=== PATIENT | female | born 1940 | race Caucasian/White ===

== ENCOUNTER 2017-11-14 14:28 | Emergency (ER) | payer OTHER ==
[2017-11-14] MEDS ORDERED: ASPIRIN 81 MG CHEWABLE TABLET ONE (15:15)
[2017-11-14] MEDS ORDERED: LORazepam 2 MG/ML VIAL ONE (15:16)
[2017-11-14] MEDS ORDERED: ONDANSETRON 4 MG/2 ML VIAL ONE (15:16)
[2017-11-14] MEDS ORDERED: FAMOTIDINE 20 MG/2 ML VIAL IV ONE (15:16)
--- NOTE | 2017-11-14 15:47 | RAD REPORT ---
EXAM DESCRIPTION: RAD - Chest Single View - 11/14/2017 3:18 pm CLINICAL HISTORY: Chest pain, sore throat COMPARISON: March 2017 TECHNIQUE: AP portable chest image was obtained 1505 hours . FINDINGS: Scattered fibrotic lung changes are present. No peripheral mass, consolidation or failure finding. Heart size is upper normal. No vascular engorgement. Heart size has probably increased sligh tly. No measurable pleural effusion and no pneumothorax. Shoulder joint degenerative change and thora cic spine degenerative change present. No acute bone finding suspected. No acute aortic findings susp ected. IMPRESSION: Scattered fibrotic lung change similar to comparison. No acute lung parenchymal process. Heart size is upper normal with no other findings of failure or volume overload.
[2017-11-14 15:57] LABS: Absolute Lymphocytes (CBC) 1.5 K/uL (0.7-4.9); Absolute Monocytes 0.5 K/uL (0.1-1.3); Absolute Neutrophil 2.6 K/uL (1.8-8.0); Basophils % 0.9 % (0-1.3); Eosinophils % 2.1 % (0-4.4); Hematocrit 40.2 % (36.0-45.0); Lymphocytes % 31.3 % (15.3-44.8); MCH 29.8 pg (27.0-35.0); MCV 88.6 fL (80-100); MPV 7.9 fL (7.6-11.3); Monocytes % 11.1 % (3.3-12.3); RBC Red Blood Cell Count 4.53 M/uL (3.86-4.86)
[2017-11-14 16:00] LABS: Protime INR 1.03
[2017-11-14 16:19] LABS: Bilirubin Direct 0.2 mg/dL (0-0.2); Bilirubin Total 0.7 mg/dL (0.2-1.0); Magnesium 2.2 mg/dL (1.8-2.4); Potassium 3.9 mmol/L (3.5-5.1); Protein, Total 7.7 g/dL (6.4-8.2)
[2017-11-14] MEDS ORDERED: NA CHLORIDE 0.9% 1,000 ML ONE (16:39)
--- NOTE | 2017-11-14 18:31 | ER ---
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 aj Transition of care: patient was not received from another setting of care. Onset of symptoms was November 14, 2017. Risk Assessment: Do you want to hurt yourself or someone else? Patient reports no desire to harm self or others. Initial Sepsis Screen: Does the patient meet any 2 criteria? No. Patient's initial sepsis screen is negative. Does the patient have a suspected source of infection? No. Patient's initial sepsis screen is negative. Care prior to arrival: None. 14:40 Method Of Arrival: Wheelchair aj 14:40 Acuity: HOWIE 3 aj Triage Assessment: 14:43 General: Appears in no apparent distress. Behavior is calm, cooperative, appropriate aj for age. Pain: Complains of pain in chest. EENT: Throat is clear Reports pain when swallowing. Neuro: Level of Consciousness is awake, alert, obeys commands, Oriented to person, place, time, situation, Appropriate for age. Cardiovascular: Capillary refill < 3 seconds in bilateral fingers Patient's skin is warm and dry. Respiratory: Airway is patent Respiratory effort is even, unlabored, Respiratory pattern is regular, symmetrical. Derm: Skin is intact, is healthy with good turgor, Skin is pink, warm \T\ dry. normal. Historical: - Allergies: 14:43 IV contrast; aj 14:43 PENICILLINS; aj - Home Meds: 14:43 amlodipine 5 mg oral tab [Active]; losartan 100 mg Oral tab 1 tab once daily [Active]; aj duloxetine 60 mg oral cpDR 1 cap once daily [Active]; atorvastatin 10 mg oral tab 1 tab once daily [Active]; divalproex 500 mg oral TbEC 1 tab every other day [Active]; quetiapine 200 mg oral tab 1 tab 2 times per day [Active]; mirtazapine 15 mg Oral tab 1 tab once daily [Active]; clonazepam 2 mg Oral tab [Active]; - PMHx: 14:43 Anxiety; Chronic pain; Depression; Hypertension; aj - PSHx: 14:43 Hernia repair; Hysterectomy; aj - Immunization history:: Adult Immunizations up to date. - Social history:: Smoking status: Patient/guardian denies using tobacco. - Ebola Screening: : Patient negative for fever greater than or equal to 101.5 degrees Fahrenheit, and additional compatible Ebola Virus Disease symptoms Patient denies exposure to infectious person Patient denies travel to an Ebola-affected area in the 21 days before illness onset No symptoms or risks identified at this time. Screenin:54 Abuse screen: Denies threats or abuse. Nutritional screening: No deficits noted. ae1 Tuberculosis screening: No symptoms or risk factors identified. Fall Risk None identified. Assessment: 14:45 General: Appears in no apparent distress. comfortable, obese, Behavior is cooperative, ae1 anxious. Pain: Complains of pain in chest Pain does not radiate. Neuro: Level of Consciousness is awake, alert, obeys commands, Oriented to person, place, Appropriate for age. Cardiovascular: Heart tones S1 S2 present Patient's skin is warm and dry. Respiratory: Airway is patent Respiratory effort is even, unlabored, Respiratory pattern is regular, symmetrical, Breath sounds are clear bilaterally. GI: Abdomen is round obese, Bowel sounds present X 4 quads. : No signs and/or symptoms were reported regarding the genitourinary system. EENT: No signs and/or symptoms were reported regarding the EENT system. Derm: Skin is pale. Musculoskeletal: No signs and/or symptoms reported regarding the musculoskeletal system. 15:20 Reassessment: Patient up to restroom to urinate .Obtained urine sample at this time. ae1 15:55 Pain: Pain does not radiate. Pain began suddenly. ae1 17:29 Reassessment: Patient appears in no apparent distress at this time. Patient is ae1 requesting more Ativan, states she is beginning to feel more anxious. Will continue to monitor and inform provider when available. Vital Signs: 14:43 BP 157 / 120; Pulse 77; Resp 22; Temp 99.7; Pulse Ox 94% on R/A; Weight 90.72 kg; aj Height 5 ft. 7 in. (170.18 cm); 15:57 BP 150 / 77; Pulse 75; Resp 19; Pulse Ox 95% on R/A; ae1 16:34 BP 146 / 73; Pulse 68; Resp 17; Pulse Ox 92% on R/A; ae1 14:43 Body Mass Index 31.32 (90.72 kg, 170.18 cm) aj ED Course: 14:31 Patient arrived in ED. mr 14:31 Padilla Ballard MD is Private Physician. mr 14:37 Nura Cano PA is PHCP. jr8 14:37 Chandra Jacome MD is Attending Physician. jr8 14:41 Triage completed. aj 14:43 Arm band placed on right wrist. Patient placed in an exam room. aj 15:07 Scott Kaiser, SUNNI is Primary Nurse. ae1 15:16 XRAY Chest (1 view) In Process Unspecified. EDMS 15:53 Inserted saline lock: 20 gauge in right forearm, using aseptic technique. Missed ae1 attempt(s): 22 gauge in right forearm. Patient maintains SpO2 saturation greater than 95% on room air. 15:54 Patient has correct armband on for positive identification. Placed in gown. Bed in low ae1 position. Call light in reach. Side rails up X2. Adult w/ patient. residential monitor on. Pulse ox on. NIBP on. Warm blanket given. 17:54 Repeat lab(s) drawn. by me, sent to lab. jb1 18:30 Padilla Ballard MD is Referral Physician. jr8 18:59 No provider procedures requiring assistance completed. IV discontinued, intact, ae1 bleeding controlled, No redness/swelling at site. Pressure dressing applied. Administered Medications: 15:00 Drug: Aspirin Chewable Tablet 324 mg Route: PO; ae1 16:40 Follow up: Response: No adverse reaction ae1 15:30 Drug: Ativan 1 mg Route: IVP; Site: right forearm; ae1 16:40 Follow up: Response: No adverse reaction; Anxiety decreased ae1 15:40 Drug: Pepcid 20 mg Route: IVP; Site: right forearm; ae1 16:40 Follow up: Response: No adverse reaction ae1 15:56 Not Given (Patient Refused; Patient states she is not nauseous at this time): Zofran 4 ae1 mg IVP once; over 2 minutes 16:39 Drug: NS 0.9% 1000 ml Route: IV; Rate: 1000 ml; Site: right forearm; ae1 19:01 Follow up: IV Status: Completed infusion ae1 Outcome: 18:31 Discharge ordered by MD. schwartz 18:59 Discharged to home via wheelchair. ae1 18:59 Condition: stable 18:59 Discharge instructions given to patient, significant other, Instructed on discharge instructions, follow up and referral plans. medication usage, Demonstrated understanding of instructions, Prescriptions given X 1. 19:05 Patient left the ED. ae1 Signatures: Dispatcher [employer] EDMS Les Nieves jb1 Cecilia Rich, SUNNI RN Myra Lilly mr Nura Cano PA PA jr8 Scott Kaiser RN RN ae1 Corrections: (The following items were deleted from the chart) 15:52 15:43 Aspirin Chewable Tablet 324 mg PO ae1 ae1
--- NOTE | 2017-11-14 18:31 | EDPHYS ---
Physician Documentation [facility] Name: Zuleima Cunningham Age: 77 yrs Sex: Female : 1940 Arrival Date: 11/14/2017 Time: 14:31 Bed 5 Private MD: Padilla Ballard V ED Physician Chandra Jacome HPI: 11/14 15:12 This 77 yrs old Female presents to ER via Wheelchair with complaints of Chest jr8 Tightness/epigastric pain. 15:12 Patient stated that she feels nauseated and has upper abdominal discomfort going to jr8 chest. Feels as if she cannot swallow well and does not want to eat. Says the pain goes to her back. S/S started yesterday. Stated that she has been out of her 2 mg Klonopin for 3 days now as well. Thinks it may be due to that . Severity of symptoms: At their worst the symptoms were moderate in the emergency department the symptoms are unchanged. The patient has not experienced similar symptoms in the past. The patient has not recently seen a physician. Historical: - Allergies: 14:43 IV contrast; aj 14:43 PENICILLINS; aj - Home Meds: 14:43 amlodipine 5 mg oral tab [Active]; losartan 100 mg Oral tab 1 tab once daily [Active]; aj duloxetine 60 mg oral cpDR 1 cap once daily [Active]; atorvastatin 10 mg oral tab 1 tab once daily [Active]; divalproex 500 mg oral TbEC 1 tab every other day [Active]; quetiapine 200 mg oral tab 1 tab 2 times per day [Active]; mirtazapine 15 mg Oral tab 1 tab once daily [Active]; clonazepam 2 mg Oral tab [Active]; - PMHx: 14:43 Anxiety; Chronic pain; Depression; Hypertension; aj - PSHx: 14:43 Hernia repair; Hysterectomy; aj - Immunization history:: Adult Immunizations up to date. - Social history:: Smoking status: Patient/guardian denies using tobacco. - Ebola Screening: : Patient negative for fever greater than or equal to 101.5 degrees Fahrenheit, and additional compatible Ebola Virus Disease symptoms Patient denies exposure to infectious person Patient denies travel to an Ebola-affected area in the 21 days before illness onset No symptoms or risks identified at this time. ROS: 15:12 Eyes: Negative for injury, pain, redness, and discharge, ENT: Negative for injury, jr8 pain, and discharge, Neck: Negative for injury, pain, and swelling, Respiratory: Negative for shortness of breath, cough, wheezing, and pleuritic chest pain, Back: Negative for injury and pain, MS/Extremity: Negative for injury and deformity, Skin: Negative for injury, rash, and discoloration, Neuro: Negative for headache, weakness, numbness, tingling, and seizure. 15:12 Cardiovascular: Positive for chest pain, Negative for edema, orthopnea, palpitations, paroxysmal nocturnal dyspnea. 15:12 Abdomen/GI: Positive for abdominal pain, nausea, Negative for diarrhea, abdominal cramps, abdominal distension, anorexia, dysphagia, hematemesis, black/tarry stool, rectal pain, rectal bleeding, bowel incontinence, flatulence. Exam: 15:12 Eyes: Pupils equal round and reactive to light, extra-ocular motions intact. Lids and jr8 lashes normal. Conjunctiva and sclera are non-icteric and not injected. Cornea within normal limits. Periorbital areas with no swelling, redness, or edema. ENT: Nares patent. No nasal discharge, no septal abnormalities noted. Tympanic membranes are normal and external auditory canals are clear. Oropharynx with no redness, swelling, or masses, exudates, or evidence of obstruction, uvula midline. Mucous membranes moist. Neck: Trachea midline, no thyromegaly or masses palpated, and no cervical lymphadenopathy. Supple, full range of motion without nuchal rigidity, or vertebral point tenderness. No Meningismus. Cardiovascular: Regular rate and rhythm with a normal S1 and S2. No gallops, murmurs, or rubs. Normal PMI, no JVD. No pulse deficits. Respiratory: Lungs have equal breath sounds bilaterally, clear to auscultation and percussion. No rales, rhonchi or wheezes noted. No increased work of breathing, no retractions or nasal flaring. Back: No spinal tenderness. No costovertebral tenderness. Full range of motion. Skin: Warm, dry with normal turgor. Normal color with no rashes, no lesions, and no evidence of cellulitis. MS/ Extremity: Pulses equal, no cyanosis. Neurovascular intact. Full, normal range of motion. Neuro: Awake and alert, GCS 15, oriented to person, place, time, and situation. Cranial nerves II-XII grossly intact. Motor strength 5/5 in all extremities. Sensory grossly intact. Cerebellar exam normal. Normal gait. 15:12 Abdomen/GI: Inspection: abdomen appears normal, Bowel sounds: active, all quadrants, Palpation: soft, in all quadrants, mild abdominal tenderness, in the epigastric area, mass, is not appreciated, rebound tenderness, is not appreciated, voluntary guarding, is not appreciated, involuntary guarding, is not appreciated, no appreciated organomegaly, Indicators: McBurney's point is not tender, Aguirre's sign is negative, Rovsing's sign is negative, Liver: no appreciated palpable abnormalities, tenderness, is not appreciated. Vital Signs: 14:43 BP 157 / 120; Pulse 77; Resp 22; Temp 99.7; Pulse Ox 94% on R/A; Weight 90.72 kg; aj Height 5 ft. 7 in. (170.18 cm); 15:57 BP 150 / 77; Pulse 75; Resp 19; Pulse Ox 95% on R/A; ae1 16:34 BP 146 / 73; Pulse 68; Resp 17; Pulse Ox 92% on R/A; ae1 14:43 Body Mass Index 31.32 (90.72 kg, 170.18 cm) aj MDM: 14:37 Patient medically screened. jr8 18:28 Data reviewed: vital signs, nurses notes, lab test result(s), EKG, radiologic studies, jr8 plain films, and as a result, I will discharge patient. Data interpreted: Pulse oximetry: on room air is 94 %. Interpretation: normal. Counseling: I had a detailed discussion with the patient and/or guardian regarding: the historical points, exam findings, and any diagnostic results supporting the discharge/admit diagnosis, lab results, radiology results, the need for outpatient follow up, a family practitioner, to return to the emergency department if symptoms worsen or persist or if there are any questions or concerns that arise at home. Response to treatment: the patient's symptoms have markedly improved after treatment. ED course: Patient much better after treatment. More then likely unintentional withdrawal from benzo. Will prescribe a few days worth to get her through the weekend . 11/14 14:37 Order name: Basic Metabolic Panel; Complete Time: 16:26 jr8 11/14 14:37 Order name: CBC with Diff; Complete Time: 16:07 11/14 14:37 Order name: LFT's; Complete Time: 16:26 11/14 14:37 Order name: Magnesium; Complete Time: 16:11/14 14:37 Order name: NT PRO-BNP; Complete Time: 16:26 11/14 14:37 Order name: PT-INR; Complete Time: 16:26 11/14 14:37 Order name: Troponin (emerg Dept Use Only); Complete Time: 16:11/14 14:37 Order name: XRAY Chest (1 view); Complete Time: 15:54 11/14 15:00 Order name: Lipase; Complete Time: 16:11/14 17:41 Order name: Troponin (emerg Dept Use Only); Complete Time: 18:28 11/14 14:37 Order name: EKG; Complete Time: 14:38 11/14 14:37 Order name: Cardiac monitoring; Complete Time: 15:50 11/14 14:37 Order name: EKG - Nurse/Tech; Complete Time: 15:51 11/14 14:37 Order name: IV Saline Lock; Complete Time: 15:51 11/14 14:37 Order name: Labs collected and sent; Complete Time: 15:51 11/14 14:37 Order name: O2 Per Protocol; Complete Time: 15:51 11/14 14:37 Order name: O2 Sat Monitoring; Complete Time: 15:51 11/14 14:37 Order name: Urine Dipstick-Ancillary (obtain specimen); Complete Time: 15:20 Administered Medications: 15:00 Drug: Aspirin Chewable Tablet 324 mg Route: PO; ae1 16:40 Follow up: Response: No adverse reaction ae1 15:30 Drug: Ativan 1 mg Route: IVP; Site: right forearm; ae1 16:40 Follow up: Response: No adverse reaction; Anxiety decreased ae1 15:40 Drug: Pepcid 20 mg Route: IVP; Site: right forearm; ae1 16:40 Follow up: Response: No adverse reaction ae1 15:56 Not Given (Patient Refused; Patient states she is not nauseous at this time): Zofran 4 ae1 mg IVP once; over 2 minutes 16:39 Drug: NS 0.9% 1000 ml Route: IV; Rate: 1000 ml; Site: right forearm; ae1 19:01 Follow up: IV Status: Completed infusion ae1 Disposition: 11/14/17 18:31 Discharged to Home. Impression: Underdosing of benzodiazepines - Withdrawl from Benzodiazepine . - Condition is Stable. - Prescriptions for Klonopin 1 mg Oral Tablet - take 1 tablet by ORAL route every 12 hours As needed; 12 tablet. - Medication Reconciliation Form, Thank You Letter, Antibiotic Education, Prescription Opioid Use form. - Follow up: Padilla Ballard MD; When: 48 Hours; Reason: Recheck today's complaints, Continuance of care, Re-evaluation by your physician. - Problem is new. - Symptoms have improved. Addendum: 11/18/2017 07:13 Co-signature as Attending Physician, Chandra Jacome MD. r n Signatures: Dispatcher [employer] EDMS Cecilia Rich RN RN aj Nieto, Roman, MD MD rn Roszak, Josh, PA PA jr8 Scott Kaiser RN RN ae1 Corrections: (The following items were deleted from the chart) 11/14 19:05 18:31 11/14/2017 18:31 Discharged to Home. Impression: Underdosing of benzodiazepines - ae1 Withdrawl from Benzodiazepine . Condition is Stable. Forms are Medication Reconciliation Form, Thank You Letter, Antibiotic Education, Prescription Opioid Use. Follow up: Padilla Ballard; When: 48 Hours; Reason: Recheck today's complaints, Continuance of care, Re-evaluation by your physician. Problem is new. Symptoms have improved. jr8
[2017-11-14 19:09] VITALS: TEMP 99.7
[2017-11-14 19:11] VITALS: BP 146/73; O2SAT 92
--- NOTE | 2017-11-15 07:12 | EKG ---
Test Date: 2017-11-14 Test Time: 14:40:21 Music Teacher: JASPREET MEASUREMENT RESULTS: Intervals: Rate: 77 [place]: 186 QRSD: 80 QT: 414 QTc: 468 [place]: P: 19 [place]: 186 QRS: -10 T: 89 INTERPRETIVE STATEMENTS: Normal sinus rhythm Normal ECG Compared to ECG 03/13/2017 17:19:39 No significant changes Electronically Signed On 11-15-17 07:11:43 CDT by Inderjit Canas
== END 2017-11-14 19:05 | disposition home or self-care (01) ==
LOC: ER 14:28
DX: T42.4X6A Underdosing of benzodiazepines, initial encounter (principal); I10 Essential (primary) hypertension; Z91.128 Patient's intentional underdosing of medication regimen for other reason; Y92.9 Unspecified place or not applicable; Z88.0 Allergy status to penicillin; Z91.041 Radiographic dye allergy status
CPT/HCPCS: 36415; 71045; 80048; 80076; 83690; 83735; 83880; 84484 ×2; 85025; 85610; 93005; 96361; 96374; 96375; 99285; J7030; J2405

== ENCOUNTER 2018-03-06 15:27 | Emergency (ER) | payer OTHER ==
[2018-03-06 16:12] LABS: Absolute Lymphocytes (CBC) 1.4 K/uL (0.7-4.9); Absolute Monocytes 0.4 K/uL (0.1-1.3); Absolute Neutrophil 1.9 K/uL (1.8-8.0); Basophils % 1.1 % (0-1.3); Eosinophils % 3.7 % (0-4.4); Hematocrit 38.4 % (36.0-45.0); Lymphocytes % 36.1 % (15.3-44.8); MCH 29.3 pg (27.0-35.0); MCV 86.6 fL (80-100); MPV 8.1 fL (7.6-11.3); Monocytes % 10.5 % (3.3-12.3); RBC Red Blood Cell Count 4.44 M/uL (3.86-4.86)
[2018-03-06] MEDS ORDERED: ONDANSETRON 4 MG/2 ML VIAL ONE (16:19)
[2018-03-06 16:33] LABS: ALT/SGPT 31 U/L (12-78); AST/SGOT 24 U/L (15-37); Albumin 3.6 g/dL (3.4-5.0); Alkaline Phosphatase 68 U/L (45-117); BUN Blood Urea Nitrogen 15 mg/dL (7-18); Bicarbonate 28 mmol/L (21-32); Bilirubin Direct 0.2 mg/dL (0-0.2); Bilirubin Total 0.6 mg/dL (0.2-1.0); Glucose Level 107 mg/dL (74-106); Lipase 120 U/L (73-393); Magnesium 2.1 mg/dL (1.8-2.4); NT PRO-BNP 145 pg/mL (<450); Potassium 3.7 mmol/L (3.5-5.1); Protein, Total 6.7 g/dL (6.4-8.2); Sodium Level 143 mmol/L (136-145); Troponin (Emerg Dept Use Only) < 0.02 ng/mL (0.0-0.045)
[2018-03-06 17:50] LABS: Protime INR 0.97
--- NOTE | 2018-03-06 18:44 | RAD REPORT ---
EXAM DESCRIPTION: CT - Abdomen Pelvis Wo Contrast - 03/06/2018 6:23 pm CLINICAL HISTORY: Abdominal pain generalized abdominal pain COMPARISON: March 2017 TECHNIQUE: Computed axial tomography of the abdomen and pelvis was obtained. IV was not requested. O ral contrast was given. Coronal reconstructions performed. All CT scans are performed using dose optimization technique as appropriate and may include automated exposure control or mA/KV adjustment according to patient size. FINDINGS: Some images are degraded by patient motion artifact. The evaluation of solid organs and ve ssels is limited secondary to the lack of contrast administration. The liver, spleen, pancreas, adrenals and kidneys appear grossly normal. The appendix is normal. There is no evidence of diverticulitis. Small periumbilical hernia is noted. A hysterectomy has been performed Air is present within the vagina Wall of the sigmoid colon appears mildly thickened IMPRESSION: Air is present within the vagina. This can be seen with infection/ fistula or instrument ation The wall of the sigmoid colon appears mildly thickened. This probably is secondary to incomplete dist ention. Mild colitis can also result in this appearance and should be correlated clinically
[2018-03-06] MEDS ORDERED: NA CHLORIDE 0.9% 500 ML ONE (20:00)
[2018-03-06] MEDS ORDERED: ASPIRIN 81 MG CHEWABLE TABLET ONE (20:00)
[2018-03-06 20:14] LABS: Urine Bacteria <20 /HPF (<20); Urine Culture Reflex Order REFLEXED; Urine RBC <5 /HPF (NONE SEEN)
--- NOTE | 2018-03-06 20:35 | RAD REPORT ---
EXAM DESCRIPTION: Chris Single View03/06/2018 4:12 pm CLINICAL HISTORY: Chest pain COMPARISON: November 2017 FINDINGS: The lungs appear clear of acute infiltrate. The heart is normal size IMPRESSION: No acute abnormalities displayed
[2018-03-06 20:46] LABS: Urine Blood NEGATIVE (NEG); Urine Glucose NEGATIVE (NEG); Urine Protein NEGATIVE (NEG)
--- NOTE | 2018-03-06 21:22 | EDPHYS ---
Physician Documentation [facility] Name: Zuleima Cunningham Age: 77 yrs Sex: Female : 1940 Arrival Date: 03/06/2018 Time: 15:30 Bed 19 Private MD: Padilla Ballard V ED Physician Donny Shields HPI: 03/06 15:45 This 77 yrs old Female presents to ER via EMS with complaints of Abd Pain > cp 51 y/o. 15:45 The patient presents with abdominal pain that is diffuse. cp 15:45 Onset: The symptoms/episode began/occurred this morning. The symptoms do not radiate. cp Associated signs and symptoms: Pertinent positives: chest pain, constipation, nausea, difficulty swallowing, Pertinent negatives: blood in stools, diarrhea, dysuria, fever, headache, shortness of breath, vomiting. Severity of pain: in the emergency department the pain is unchanged despite home interventions. Patient reports last BM was 4 days ago and that she is having difficulty swallowing and feels like food is getting stuck. Historical: - Allergies: 15:34 IV contrast; jl7 15:34 PENICILLINS; jl7 - Home Meds: 15:34 amlodipine 5 mg tab [Active]; atorvastatin 10 mg Oral tab 1 tab once daily [Active]; jl7 clonazepam 2 mg Oral tab [Active]; divalproex 500 mg Oral TbEC 1 tab Every other day [Active]; duloxetine 60 mg Oral cpDR 1 cap once daily [Active]; losartan 100 mg Oral tab 1 tab once daily [Active]; mirtazapine 15 mg Oral tab 1 tab once daily [Active]; quetiapine 200 mg Oral tab 1 tab 2 times per day [Active]; - PMHx: 15:34 Anxiety; Chronic pain; Depression; Hypertension; jl7 - PSHx: 15:34 Hernia repair; Hysterectomy; jl7 - Immunization history:: Adult Immunizations unknown. - Social history:: Smoking status: Patient/guardian denies using tobacco. - Ebola Screening: : No symptoms or risks identified at this time. ROS: 15:52 Constitutional: Negative for body aches, chills, fever, poor PO intake. cp 15:52 Eyes: Negative for injury, pain, redness, and discharge. cp 15:52 ENT: Negative for drainage from ear(s), ear pain, sore throat, difficulty swallowing, difficulty handling secretions. Exam: 15:55 ECG was reviewed by the Attending Physician. cp 16:00 Constitutional: The patient appears in no acute distress, alert, awake, cp non-diaphoretic, non-toxic, well developed, well nourished, uncomfortable. 16:00 Head/Face: Normocephalic, atraumatic. cp 16:00 Eyes: Periorbital structures: appear normal, Pupils: equal, round, and reactive to light and accomodation, Conjunctiva: normal, no exudate, no injection, Sclera: no appreciated abnormality, Lids and lashes: appear normal, bilaterally. 16:00 ENT: External ear(s): are unremarkable, Ear canal(s): are normal, clear, TM's: are normal, no evidence of bulging, no erythema, Nose: is normal, Mouth: Lips: moist, Oral mucosa: pink and intact, moist, Gums: pink, Tongue: is normal, abscess, is not appreciated, Posterior pharynx: is normal, airway is patent, no erythema, no exudate, Dental exam: dental caries, that is moderate, diffusely, missing teeth, diffusely, pain, that is moderate, diffusely. 16:00 Neck: ROM/movement: is normal, is supple, without pain, no range of motions limitations, no meningismus, no nuchal rigidity. 16:00 Chest/axilla: Inspection: normal, Palpation: is normal, no crepitus, no tenderness. 16:00 Cardiovascular: Rate: normal, Rhythm: regular. 16:00 Respiratory: the patient does not display signs of respiratory distress, Respirations: normal, no use of accessory muscles, no retractions, no splinting, no tachypnea, labored breathing, is not present, Breath sounds: are clear throughout, no decreased breath sounds, no stridor, no wheezing. 16:00 Abdomen/GI: Inspection: abdomen appears normal, Bowel sounds: active, all quadrants, Palpation: soft, in all quadrants, moderate abdominal tenderness, in all quadrants, rebound tenderness, is not appreciated, voluntary guarding, is not appreciated, involuntary guarding, is not appreciated. 16:00 Back: pain, is absent, ROM is normal. 16:00 Musculoskeletal/extremity: Exam is negative for calf tenderness, edema, injury. 16:00 Skin: cellulitis, is not appreciated, no rash present. 16:00 Neuro: Orientation: to person, place \T\ time. Mentation: is normal, Cerebellar function: is grossly normal, Motor: moves all fours, strength is normal, Sensation: is normal. Vital Signs: 15:34 BP 152 / 84; Pulse 72; Resp 18 S; Temp 98.5(O); Pulse Ox 98% on R/A; Weight 92.08 kg jl7 (R); Height 5 ft. 6 in. (167.64 cm) (R); Pain 5/10; 16:00 BP 177 / 77; Pulse 72; Resp 16 S; Pulse Ox 99% on R/A; jl7 17:05 BP 158 / 84; Pulse 65; Resp 16 S; Pulse Ox 99% on R/A; jl7 17:30 BP 161 / 82; Pulse 70; Resp 16 S; Pulse Ox 99% on R/A; jl7 18:37 BP 155 / 81; Pulse 73; Resp 16 S; Pulse Ox 99% on R/A; jl7 19:30 BP 143 / 72; Pulse 76; Resp 18; Pulse Ox 97% ; ea 20:31 BP 163 / 78; Pulse 75; Resp 19; Pulse Ox 97% ; ea 21:09 BP 165 / 70; Pulse 80; Resp 18; Pulse Ox 99% ; ea 21:17 BP 173 / 85; Pulse 75; Resp 14; Pulse Ox 100% on R/A; mt 15:34 Body Mass Index 32.76 (92.08 kg, 167.64 cm) 7 MDM: 15:34 Patient medically screened. cp 16:00 Differential diagnosis: bowel obstruction, cholecystitis, Cholelithiasis, cp diverticulitis, gastritis, non-specific abd pain, pancreatitis, Pyelonephritis, Ureterolithiasis, urinary tract infection, colitis. 21:20 Data reviewed: vital signs, nurses notes, lab test result(s), EKG, radiologic studies, cp CT scan, plain films. 21:20 Test interpretation: by ED physician or midlevel provider: ECG, plain radiologic cp studies. Counseling: I had a detailed discussion with the patient and/or guardian regarding: the historical points, exam findings, and any diagnostic results supporting the discharge/admit diagnosis, lab results, radiology results, the need for outpatient follow up, a placement manager, to return to the emergency department if symptoms worsen or persist or if there are any questions or concerns that arise at home. Response to treatment: the patient's symptoms have markedly improved after treatment, VSS. Patient reports abdominal pain improved after BM while in ED, and as a result, I will discharge patient. Special discussion: Based on the patient's Hx, exam, and Dx evaluation, there is no indication for emergent surgery or inpatient Tx. It is understood by the patient/guardian that if the Sx's persist or worsen they need to return immediately for re-evaluation. 03/06 15:38 Order name: Basic Metabolic Panel; Complete Time: 17:31 cp 03/06 17:31 Interpretation: Normal except: CL 108; GLUC 107; GFR 70. cp 03/06 15:38 Order name: CBC with Diff; Complete Time: 17:31 cp 03/06 17:31 Interpretation: Normal except: WBC 3.8. cp 03/06 15:38 Order name: LFT's; Complete Time: 17:31 cp 03/06 15:38 Order name: Magnesium; Complete Time: 17:31 cp 03/06 15:38 Order name: NT PRO-BNP; Complete Time: 17:31 cp 03/06 15:38 Order name: PT-INR; Complete Time: 19:31 cp 03/06 15:38 Order name: Troponin (emerg Dept Use Only); Complete Time: 17:31 cp 03/06 17:32 Interpretation: Within normal limits: TROPED < 0.02. cp 03/06 15:38 Order name: XRAY Chest (1 view); Complete Time: 20:48 cp 03/06 15:38 Order name: Lipase; Complete Time: 17:31 cp 03/06 16:10 Order name: CT Abd/Pelvis - Without Cont: give oral contrast; Complete Time: 19:31 cp 03/06 19:33 Order name: Urine Microscopic Only; Complete Time: 20:48 cp 03/06 20:48 Interpretation: Normal except: SQEPI 10-20. cp 03/06 19:43 Order name: Urine Dipstick--Ancillary (enter results); Complete Time: 20:48 ms 03/06 20:48 Interpretation: Normal except: UESTR TRACE. cp 03/06 20:15 Order name: Urine Culture EDMS 03/06 15:38 Order name: EKG; Complete Time: 15:39 cp 03/06 15:38 Order name: Cardiac monitoring; Complete Time: 16:02 cp 03/06 15:38 Order name: EKG - Nurse/Tech; Complete Time: 16:02 cp 03/06 15:38 Order name: IV Saline Lock; Complete Time: 16:02 cp 03/06 15:38 Order name: Labs collected and sent; Complete Time: 16:02 cp 03/06 15:38 Order name: O2 Per Protocol; Complete Time: 16:03 cp 03/06 15:38 Order name: O2 Sat Monitoring; Complete Time: 16:03 cp 03/06 16:37 Order name: Labs - recollect needed; Complete Time: 17:42 eb 03/06 19:33 Order name: Urine Dipstick-Ancillary (obtain specimen); Complete Time: 19:42 cp 03/06 20:08 Order name: PO challenge; Complete Time: 20:30 cp EC:55 Rate is 67 beats/min. Rhythm is regular. NE interval is normal. QRS interval is normal. cp QT interval is normal. T waves are Inverted in lead aVL. Interpreted by me. Reviewed by me. Administered Medications: 19:50 Drug: Aspirin Chewable Tablet 324 mg Route: PO; ea 20:37 Follow up: Response: No adverse reaction ea 19:50 Drug: NS 0.9% 500 ml Route: IV; Rate: bolus; Site: left forearm; ea 21:48 Not Given (Patient Refused): GI Cocktail without - (Maalox Suspension 30 ml, ak1 Lidocaine Liquid 2 % 15 ml) PO once; swish, gargle and swallow Disposition: 03/07 00:32 Co-signature as Attending Physician, Donny Shields MD I agree with the assessment and kdr plan of care. Disposition: 03/06/18 21:21 Discharged to Home. Impression: Unspecified abdominal pain, Constipation, unspecified. - Condition is Stable. - Discharge Instructions: Abdominal Pain, Adult, Constipation, Adult. - Medication Reconciliation Form, Thank You Letter, Antibiotic Education, Prescription Opioid Use form. - Follow up: Padilla Ballard MD; When: 2 - 3 days; Reason: Recheck today's complaints. - Problem is new. - Symptoms have improved. Signatures: Dispatcher [employer] EDVT Donny Shields MD MD kdr Krenek, Amber RN RN ak1 Rasta Garcia PA PA cp Kortney Hwang, RN RN jl7 Beata Gallego RN RN Rosalinda Cedillo Corrections: (The following items were deleted from the chart) 03/06 19:42 19:33 Hatch ordered. cp mt 21:22 21:21 03/06/2018 21:21 Discharged to Home. Impression: Unspecified abdominal pain. cp Condition is Stable. Forms are Medication Reconciliation Form, Thank You Letter, Antibiotic Education, Prescription Opioid Use. Follow up: Padilla Ballard; When: 2 - 3 days; Reason: Recheck today's complaints. Problem is new. Symptoms have improved. cp 21:50 21:22 03/06/2018 21:21 Discharged to Home. Impression: Unspecified abdominal pain; ak1 Constipation, unspecified. Condition is Stable. Discharge Instructions: Abdominal Pain, Adult, Constipation, Adult. Forms are Medication Reconciliation Form, Thank You Letter, Antibiotic Education, Prescription Opioid Use. Follow up: Padilla Ballard; When: 2 - 3 days; Reason: Recheck today's complaints. Problem is new. Symptoms have improved. cp
--- NOTE | 2018-03-06 21:22 | ER ---
Nurse's Notes [facility] Name: Zuleima Cunningham Age: 77 yrs Sex: Female : 1940 Arrival Date: 03/06/2018 Time: 15:30 Bed 19 Private MD: Padilla Ballard V Diagnosis: Unspecified abdominal pain;Constipation, unspecified Presentation: 03/06 15:31 Presenting complaint: EMS states: She's having generalized abdominal pain, started this jl7 morning, last BM was 4 days ago. Transition of care: patient was not received from another setting of care. Onset of symptoms was March 06, 2018. Risk Assessment: Do you want to hurt yourself or someone else? Patient reports no desire to harm self or others. Initial Sepsis Screen: Does the patient meet any 2 criteria? No. Patient's initial sepsis screen is negative. Does the patient have a suspected source of infection? No. Patient's initial sepsis screen is negative. Care prior to arrival: Glucose check: 95. 15:31 Method Of Arrival: EMS: [facility] 15:31 Acuity: HOWIE 3 jl7 Triage Assessment: 15:34 General: Appears in no apparent distress. uncomfortable, Behavior is cooperative, jl7 anxious. Pain: Complains of pain in right upper quadrant, left upper quadrant, right lower quadrant and left lower quadrant Pain does not radiate. Pain currently is 5 out of 10 on a pain scale. Quality of pain is described as aching, dull, Pain began 4 hours ago. Is continuous. EENT: No signs and/or symptoms were reported regarding the EENT system. Neuro: Level of Consciousness is awake, alert, obeys commands. Cardiovascular: Patient's skin is warm and dry. Respiratory: Airway is patent Respiratory effort is even, unlabored, Respiratory pattern is regular, symmetrical. GI: Abdomen is round non-distended, Last BM was March 02, 2018. Bowel sounds present X 4 quads. hypoactive in left upper quadrant and left lower quadrant. : No signs and/or symptoms were reported regarding the genitourinary system. Denies burning with urination. Derm: Musculoskeletal: No signs and/or symptoms reported regarding the musculoskeletal system. Historical: - Allergies: 15:34 IV contrast; jl7 15:34 PENICILLINS; jl7 - Home Meds: 15:34 amlodipine 5 mg tab [Active]; atorvastatin 10 mg Oral tab 1 tab once daily [Active]; jl7 clonazepam 2 mg Oral tab [Active]; divalproex 500 mg Oral TbEC 1 tab Every other day [Active]; duloxetine 60 mg Oral cpDR 1 cap once daily [Active]; losartan 100 mg Oral tab 1 tab once daily [Active]; mirtazapine 15 mg Oral tab 1 tab once daily [Active]; quetiapine 200 mg Oral tab 1 tab 2 times per day [Active]; - PMHx: 15:34 Anxiety; Chronic pain; Depression; Hypertension; jl7 - PSHx: 15:34 Hernia repair; Hysterectomy; jl7 - Immunization history:: Adult Immunizations unknown. - Social history:: Smoking status: Patient/guardian denies using tobacco. - Ebola Screening: : No symptoms or risks identified at this time. Screenin:39 Abuse screen: Denies threats or abuse. Denies injuries from another. Nutritional jl7 screening: No deficits noted. Tuberculosis screening: No symptoms or risk factors identified. Fall Risk None identified. Assessment: 15:39 GI: Abd is soft X 4 quads Abdomen is tender to palpation in right lower quadrant and jl7 left lower quadrant. 16:43 Reassessment: Pt finished drinking oral contrast, CT notified. jl7 17:30 Reassessment: Patient appears in no apparent distress at this time. Patient and/or jl7 family updated on plan of care and expected duration. Pain level reassessed. Patient is alert, oriented x 3, equal unlabored respirations, skin warm/dry/pink. 18:36 Reassessment: No changes from previously documented assessment. Patient and/or family jl7 updated on plan of care and expected duration. Pain level reassessed. Patient is alert, oriented x 3, equal unlabored respirations, skin warm/dry/pink. 19:10 General: Appears in no apparent distress. Behavior is calm, cooperative, appropriate ea for age. Pain: Complains of pain in abdomen Pain currently is 6 out of 10 on a pain scale. Quality of pain is described as aching. Neuro: Level of Consciousness is awake, alert, obeys commands, Oriented to person, place, time, situation. Cardiovascular: Heart tones S1 S2 present Patient's skin is warm and dry. Respiratory: Airway is patent Respiratory effort is even, unlabored, Respiratory pattern is regular, symmetrical. GI: Abdomen is non-distended, Bowel sounds present X 4 quads. Derm: Skin is pink, warm \T\ dry. 20:27 Reassessment: Patient and/or family updated on plan of care and expected duration. Pain ea level reassessed. Patient is alert, oriented x 3, equal unlabored respirations, skin warm/dry/pink. 21:09 Reassessment: Patient and/or family updated on plan of care and expected duration. Pain ea level reassessed. Patient is alert, oriented x 3, equal unlabored respirations, skin warm/dry/pink. at bedside. 21:48 Reassessment: Patient appears in no apparent distress at this time. No changes from ak1 previously documented assessment. Patient and/or family updated on plan of care and expected duration. Pain level reassessed. Patient is alert, oriented x 3, equal unlabored respirations, skin warm/dry/pink. pt crying that her teeth hurt and would like to stay in the hospital. pt and informed to follow up with PCP as well as dentist Friday. Vital Signs: 15:34 BP 152 / 84; Pulse 72; Resp 18 S; Temp 98.5(O); Pulse Ox 98% on R/A; Weight 92.08 kg jl7 (R); Height 5 ft. 6 in. (167.64 cm) (R); Pain 5/10; 16:00 BP 177 / 77; Pulse 72; Resp 16 S; Pulse Ox 99% on R/A; jl7 17:05 BP 158 / 84; Pulse 65; Resp 16 S; Pulse Ox 99% on R/A; jl7 17:30 BP 161 / 82; Pulse 70; Resp 16 S; Pulse Ox 99% on R/A; jl7 18:37 BP 155 / 81; Pulse 73; Resp 16 S; Pulse Ox 99% on R/A; jl7 19:30 BP 143 / 72; Pulse 76; Resp 18; Pulse Ox 97% ; ea 20:31 BP 163 / 78; Pulse 75; Resp 19; Pulse Ox 97% ; ea 21:09 BP 165 / 70; Pulse 80; Resp 18; Pulse Ox 99% ; ea 21:17 BP 173 / 85; Pulse 75; Resp 14; Pulse Ox 100% on R/A; mt 15:34 Body Mass Index 32.76 (92.08 kg, 167.64 cm) 7 ED Course: 15:30 Patient arrived in ED. 7 15:32 Triage completed. 7 15:34 Rasta Garcia PA is PHCP. cp 15:34 Chandra Jacome MD is Attending Physician. cp 15:34 Natan Hammonds PA is PHCP. [facility] 15:34 Arm band placed on right wrist. 7 15:39 Patient has correct armband on for positive identification. Bed in low position. Call jl7 light in reach. Side rails up X2. monitoring tech on. Pulse ox on. NIBP on. Warm blanket given. 15:55 EKG done, by occupational therapy technician. reviewed by Rasta VERDUZCO. 3 15:57 Initial lab(s) drawn, by me, sent to lab. Inserted saline lock: 20 gauge in left dh3 antecubital area, using aseptic technique. Blood collected. 16:11 X-ray completed. Portable x-ray completed in exam room. Patient tolerated procedure ls3 well. 16:12 XRAY Chest (1 view) In Process Unspecified. EDMS 16:33 Kortney Hwang, SUNNI is Primary Nurse. jl7 16:45 Inserted saline lock: 22 gauge in left forearm, using aseptic technique. dh3 16:50 IV discontinued, intact, bleeding controlled, No redness/swelling at site. Pressure dh3 dressing applied. 18:[address] 2 18:23 CT Abd/Pelvis - Without Cont: give oral contrast In Process Unspecified. EDMS 18:49 Primary Nurse role handed off by Kortney Hwang RN [facility] 19:10 Beata Gallego RN is Primary Nurse. ea 19:35 Padilla Ballard MD is Private Physician. cp 19:56 Attending Physician role handed off by Chandra Jacome MD kdr 19:56 Donny Shields MD is Attending Physician. kdr 21:21 Padilla Ballard MD is Referral Physician. cp 21:49 No provider procedures requiring assistance completed. IV discontinued, intact, ak1 bleeding controlled, No redness/swelling at site. Pressure dressing applied. Administered Medications: 19:50 Drug: Aspirin Chewable Tablet 324 mg Route: PO; ea 20:37 Follow up: Response: No adverse reaction ea 19:50 Drug: NS 0.9% 500 ml Route: IV; Rate: bolus; Site: left forearm; ea 21:48 Not Given (Patient Refused): GI Cocktail without - (Maalox Suspension 30 ml, ak1 Lidocaine Liquid 2 % 15 ml) PO once; swish, gargle and swallow Outcome: 21:21 Discharge ordered by MD. cp 21:50 Discharged to home via wheelchair, with family. ak1 21:50 Condition: good 21:50 Discharge instructions given to patient, family, Instructed on discharge instructions, follow up and referral plans. Demonstrated understanding of instructions, follow-up care. 21:50 Patient left the ED. ak1 Addendum: 03/10/2018 09:45 Addendum: Culture Results: Positive urine culture. Patient was not prescribed i w antibiotics at discharge. Report given to NICOLASA for further evaluation and then to architectural sales consultant for follow up with patient. Phone call Attempt #1 no answer, left voice mail with call back number. Signatures: Dispatcher [employer] EDMS Donny Shields MD MD kdr Mickail, Joel, PA PA Jimena Lozoya, RN Lillie Goodson RN RN ak1 Rasta Garcia PA PA cp Leal, Jahala, RN RN [id number] Celina Gonzalez Moriah mt Herrera, Deanna 3 Beata Gallego, RN Flower Mishra ea3 Ana Diaz3
[2018-03-06] MEDS ORDERED: LIDOCAINE VISCOUS 2% SOLN 15 ML UDC ONE (21:45)
[2018-03-06] MEDS ORDERED: MAGNE/ALUM HYDROXD 30 ML UCUP ONE (21:45)
[2018-03-06 21:59] VITALS: TEMP 98.5
[2018-03-06 22:08] VITALS: BP 173/85; O2SAT 100
--- NOTE | 2018-03-07 12:27 | EKG ---
Test Date: 2018-03-06 Test Time: 15:49:30 Powder Coater: JASPREET MEASUREMENT RESULTS: Intervals: Rate: 67 CO: 142 QRSD: 80 QT: 424 QTc: 448 Minetto: P: -10 CO: 142 QRS: 21 T: 66 INTERPRETIVE STATEMENTS: Normal sinus rhythm Normal ECG Compared to ECG 11/14/2017 14:40:21 No significant changes Electronically Signed On 03-07-18 12:25:48 CDT by Zeyad Bennett
== END 2018-03-06 21:50 | disposition home or self-care (01) ==
LOC: ER 15:27
DX: K59.00 Constipation, unspecified (principal); I10 Essential (primary) hypertension; F32.9 Major depressive disorder, single episode, unspecified; F41.9 Anxiety disorder, unspecified; Z88.0 Allergy status to penicillin; Z91.041 Radiographic dye allergy status
CPT/HCPCS: 36415; 71045; 74176; 80048; 80076; 81003; 81015; 83690; 83735; 83880; 84484; 85025; 85610; 87077; 87086; 87088; 87186; 93005; 99285; J2405

== ENCOUNTER 2018-10-16 17:19 | Emergency (ER) | payer OTHER ==
[2018-10-16 18:16] LABS: Absolute Lymphocytes (CBC) 1.7 K/uL (0.7-4.9); Absolute Monocytes 0.5 K/uL (0.1-1.3); Absolute Neutrophil 2.5 K/uL (1.8-8.0); Basophils % 0.8 % (0-1.3); Eosinophils % 3.1 % (0-4.4); Hematocrit 42.4 % (36.0-45.0); Lymphocytes % 34.5 % (15.3-44.8); Monocytes % 10.2 % (3.3-12.3); RBC Red Blood Cell Count 4.79 M/uL (3.86-4.86)
[2018-10-16] MEDS ORDERED: ONDANSETRON 4 MG/2 ML VIAL ONE (18:17)
[2018-10-16] MEDS ORDERED: LORazepam 2 MG/ML VIAL ONE (18:27)
[2018-10-16 18:42] LABS: Albumin 4.1 g/dL (3.4-5.0); Bilirubin Direct 0.2 mg/dL (0-0.2); Bilirubin Total 0.9 mg/dL (0.2-1.0); Potassium 3.5 mmol/L (3.5-5.1); Protein, Total 7.6 g/dL (6.4-8.2)
--- NOTE | 2018-10-16 20:01 | RAD REPORT ---
EXAM DESCRIPTION: CT - Abdomen Pelvis Wo Contrast - 10/16/2018 7:48 pm CLINICAL HISTORY: Abdominal pain COMPARISON: None TECHNIQUE: Computed axial tomography of the abdomen and pelvis was obtained. IV was not requested. O ral contrast was given. Coronal reconstructions performed. All CT scans are performed using dose optimization technique as appropriate and may include automated exposure control or mA/KV adjustment according to patient size. FINDINGS: The evaluation of solid organs and vessels is limited secondary to the lack of contrast a dministration. The liver, spleen, pancreas, adrenals and kidneys appear grossly normal. The appendix is normal. There is no evidence of diverticulitis. The rectum is distended with stool measuring 6.5 centimeters. Moderate amount of stool is present thr oughout the colon IMPRESSION: The rectum is distended with stool measuring 6.5 centimeters. Moderate amount of stool i s present throughout the colon
[2018-10-16] MEDS ORDERED: FLEET ENEMA ADULT PR ONE (21:00)
--- NOTE | 2018-10-16 21:26 | ER ---
Nurse's Notes [facility] Name: Zuleima Cunningham Age: 78 yrs Sex: Female : 1940 Arrival Date: 10/16/2018 Time: 17:22 Bed 23 Private MD: Padilla Ballard V Diagnosis: Constipation Presentation: 10/16 17:28 Presenting complaint: Patient states: generalized abd pain that began 2 days ago. Pt aa5 reports last BM was 4 days ago, reports nausea, denies vomiting. Transition of care: patient was not received from another setting of care. Onset of symptoms was October 2018. Risk Assessment: Do you want to hurt yourself or someone else? Patient reports no desire to harm self or others. Care prior to arrival: None. 17:28 Method Of Arrival: Wheelchair aa5 17:28 Acuity: HOWIE 3 aa5 17:53 Initial Sepsis Screen: Does the patient meet any 2 criteria? No. Patient's initial ca1 sepsis screen is negative. Does the patient have a suspected source of infection? No. Patient's initial sepsis screen is negative. Historical: - Allergies: 17:29 IV contrast; aa5 17:29 PENICILLINS; aa5 - Home Meds: 18:02 amlodipine 5 mg tab 1 tab once daily [Active]; atorvastatin 10 mg Oral tab 1 tab once ca1 daily [Active]; losartan 100 mg Oral tab 1 tab once daily [Active]; duloxetine 60 mg Oral cpDR 1 cap once daily [Active]; mirtazapine 15 mg Oral tab 1 tab once daily [Active]; quetiapine 200 mg Oral tab 1 tab 2 times per day [Active]; clonazepam 2 mg Oral tab [Active]; ClearLax 17 gram/dose oral powd once daily [Active]; bisacodyl 5 mg Oral TbEC 1 tab [Active]; - PMHx: 17:29 Anxiety; Chronic pain; Depression; Hypertension; aa5 - PSHx: 17:29 Hernia repair; Hysterectomy; aa5 - Immunization history:: Adult Immunizations up to date. - Social history:: Smoking status: Patient/guardian denies using tobacco. - Ebola Screening: : No symptoms or risks identified at this time. Screenin:50 Abuse screen: Denies threats or abuse. Denies injuries from another. Nutritional ca1 screening: No deficits noted. Tuberculosis screening: No symptoms or risk factors identified. Fall Risk IV access (20 points). Ambulatory Aid- Crutches/Cane/Walker (15 pts). Assessment: 17:50 General: Appears in no apparent distress. uncomfortable, Behavior is cooperative, ca1 anxious. Pain: Complains of pain in abdomen Pain does not radiate. Pain currently is 3 out of 10 on a pain scale. Pain began 2-3 days ago. Neuro: Level of Consciousness is awake, alert, obeys commands, Oriented to person, place, time, situation. Cardiovascular: Heart tones S1 S2 present. Respiratory: Airway is patent Respiratory effort is even, unlabored, Respiratory pattern is regular, symmetrical, Breath sounds are clear bilaterally. GI: Abdomen is round non-distended, Bowel sounds present X 4 quads. Abd is soft and non tender X 4 quads. Reports constipation, since 2 days ago. : No deficits noted. No signs and/or symptoms were reported regarding the genitourinary system. EENT: No deficits noted. No signs and/or symptoms were reported regarding the EENT system. Derm: Skin is intact, is healthy with good turgor, Skin is pink, warm \T\ dry. Derm:. Musculoskeletal: Circulation, motion, and sensation intact. Capillary refill < 3 seconds. 18:19 Reassessment: Patient appears in no apparent distress at this time. Patient is alert, ca1 oriented x 3, equal unlabored respirations, skin warm/dry/pink. Oral Contrast completed. 18:44 Reassessment: Patient appears in no apparent distress at this time. Patient is alert, ca1 oriented x 3, equal unlabored respirations, skin warm/dry/pink. Pending CT scan. 19:36 Reassessment: Patient appears in no apparent distress at this time. Patient is alert, ca1 oriented x 3, equal unlabored respirations, skin warm/dry/pink. 20:21 Reassessment: Patient appears in no apparent distress at this time. Patient is alert, ca1 oriented x 3, equal unlabored respirations, skin warm/dry/pink. 21:27 Reassessment: Patient appears in no apparent distress at this time. Patient is alert, ca1 oriented x 3, equal unlabored respirations, skin warm/dry/pink. Assisted pt to commode. Able to defecate a lot and hard stool. Notified provider. 21:35 Reassessment: Patient appears in no apparent distress at this time. Patient is alert, ca1 oriented x 3, equal unlabored respirations, skin warm/dry/pink. Patient states feeling better. Vital Signs: 17:30 BP 151 / 80; Pulse 92; Resp 18 S; Temp 98.9(O); Pulse Ox 99% on R/A; Weight 90.72 kg aa5 (R); Height 5 ft. 7 in. (170.18 cm) (R); Pain 9/10; 18:44 BP 145 / 73; Pulse 67; Resp 18 S; Pulse Ox 99% on R/A; ca1 19:36 BP 133 / 74; Pulse 66; Resp 18 S; Temp 98.7(O); Pulse Ox 99% on R/A; ca1 20:24 BP 110 / 75; Pulse 75; Resp 17 S; Temp 98.5(O); Pulse Ox 99% on R/A; ca1 21:27 BP 126 / 93; Pulse 81; Resp 18 S; Temp 98.4(O); Pulse Ox 96% on R/A; ca1 17:30 Body Mass Index 31.32 (90.72 kg, 170.18 cm) aa5 ED Course: 17:22 Patient arrived in ED. mr 17:24 Padilla Ballard MD is Private Physician. mr 17:29 Triage completed. aa5 17:29 Arm band placed on. aa5 17:32 Desean Dowling, CHESTER is PHCP. pm1 17:32 Chandra Jacome MD is Attending Physician. pm1 17:33 Roxane Willett, SUNNI is Primary Nurse. ca1 17:50 Patient has correct armband on for positive identification. Placed in gown. Bed in low ca1 position. Call light in reach. Side rails up X 1. Pulse ox on. NIBP on. Warm blanket given. 17:50 No provider procedures requiring assistance completed. ca1 18:08 Initial lab(s) drawn, by me, sent to lab. Inserted saline lock: 22 gauge in left lt1 antecubital area, using aseptic technique. 19:49 Abdomen In Process Unspecified. EDMS 21:43 IV discontinued, intact, bleeding controlled, No redness/swelling at site. Pressure ca1 dressing applied. Administered Medications: 18:05 Drug: Zofran 4 mg Route: IVP; Site: left antecubital; rv 19:20 Follow up: Response: No adverse reaction; Nausea is decreased ca1 18:18 Drug: Ativan 1 mg Route: IVP; Site: left antecubital; ca1 19:20 Follow up: Response: No adverse reaction; Anxiety decreased ca1 20:44 Not Given (Physician Discretion): Glycerin (Adult) Suppository 1 supp NJ once pm1 20:55 Drug: Fleet Enema 133 ml Route: NJ; ca1 21:30 Follow up: Response: No adverse reaction; No adverse reaction. BM done ca1 Outcome: 21:26 Discharge ordered by MD. pm1 21:43 Discharged to home via wheelchair, with significant other. ca1 21:43 Condition: stable 21:43 Discharge instructions given to patient, significant other, Instructed on discharge instructions, follow up and referral plans. medication usage, Demonstrated understanding of instructions, follow-up care, medications, Prescriptions given X 1. 21:43 Patient left the ED. ca1 Signatures: Dispatcher [employer] EDMS Olivia Sanchez Audri, RN RN aa5 Desean Dowling, DATABASE MANAGEMENT SYSTEM SPECIALIST DATABASE MANAGEMENT SYSTEM SPECIALIST pm1 Spencer Pino RN RN rv Roxane Willett RN RN ca1 Kim, Mandi lt1 Corrections: (The following items were deleted from the chart) 17:35 17:30 BP 151 / 80; Pulse 92bpm; Resp 18bpm; Spontaneous; Pulse Ox 99% RA; 90.72 kg aa5 Reported; Height 5 ft. 7 in. Reported; BMI: 31.3; Pain 9/10; aa5 21:42 21:27 BP 158 / 67; Pulse 81bpm; Resp 18bpm; Spontaneous; Pulse Ox 96% RA; Temp 98.4F ca1 Oral; ca1
--- NOTE | 2018-10-16 21:27 | EDPHYS ---
Physician Documentation [facility] Name: Zuleima Cunningham Age: 78 yrs Sex: Female : 1940 Arrival Date: 10/16/2018 Time: 17:22 Bed 23 Private MD: Padilla Ballard V ED Physician Chandra Jacome HPI: 10/16 18:05 This 78 yrs old Female presents to ER via Wheelchair with complaints of pm1 Constipation. 18:05 The patient presents with Constipation. Onset: The symptoms/episode began/occurred 4 pm1 day(s) ago. The symptoms do not radiate. Associated signs and symptoms: Pertinent positives: diffuse abdominal pain, Pertinent negatives: chest pain, dysuria, fever, headache, nausea, shortness of breath, vomiting. The symptoms are described as constant, crampy. Modifying factors: The symptoms are alleviated by nothing, the symptoms are aggravated by nothing. Severity of pain: in the emergency department the pain is actually worse. The patient has experienced similar episodes in the past, multiple times. The patient has not recently seen a physician. Historical: - Allergies: 17:29 IV contrast; aa5 17:29 PENICILLINS; aa5 - Home Meds: 18:02 amlodipine 5 mg tab 1 tab once daily [Active]; atorvastatin 10 mg Oral tab 1 tab once ca1 daily [Active]; losartan 100 mg Oral tab 1 tab once daily [Active]; duloxetine 60 mg Oral cpDR 1 cap once daily [Active]; mirtazapine 15 mg Oral tab 1 tab once daily [Active]; quetiapine 200 mg Oral tab 1 tab 2 times per day [Active]; clonazepam 2 mg Oral tab [Active]; ClearLax 17 gram/dose oral powd once daily [Active]; bisacodyl 5 mg Oral TbEC 1 tab [Active]; - PMHx: 17:29 Anxiety; Chronic pain; Depression; Hypertension; aa5 - PSHx: 17:29 Hernia repair; Hysterectomy; aa5 - Immunization history:: Adult Immunizations up to date. - Social history:: Smoking status: Patient/guardian denies using tobacco. - Ebola Screening: : No symptoms or risks identified at this time. ROS: 18:05 Constitutional: Negative for fever, chills, and weight loss, Eyes: Negative for injury, pm1 pain, redness, and discharge, ENT: Negative for injury, pain, and discharge, Neck: Negative for injury, pain, and swelling, Cardiovascular: Negative for chest pain, palpitations, and edema, Respiratory: Negative for shortness of breath, cough, wheezing, and pleuritic chest pain. 18:05 Back: Negative for injury and pain, : Negative for injury, bleeding, discharge, and swelling, MS/Extremity: Negative for injury and deformity, Skin: Negative for injury, rash, and discoloration, Neuro: Negative for headache, weakness, numbness, tingling, and seizure. 18:05 Abdomen/GI: Positive for abdominal pain, nausea, constipation, Negative for vomiting, diarrhea. Exam: 18:05 Constitutional: This is a well developed, well nourished patient who is awake, alert, pm1 and in no acute distress. Head/Face: Normocephalic, atraumatic. Eyes: Pupils equal round and reactive to light, extra-ocular motions intact. Lids and lashes normal. Conjunctiva and sclera are non-icteric and not injected. Cornea within normal limits. Periorbital areas with no swelling, redness, or edema. ENT: Nares patent. No nasal discharge, no septal abnormalities noted. Tympanic membranes are normal and external auditory canals are clear. Oropharynx with no redness, swelling, or masses, exudates, or evidence of obstruction, uvula midline. Mucous membranes moist. Neck: Trachea midline, no thyromegaly or masses palpated, and no cervical lymphadenopathy. Supple, full range of motion without nuchal rigidity, or vertebral point tenderness. No Meningismus. Chest/axilla: Normal chest wall appearance and motion. Nontender with no deformity. No lesions are appreciated. Cardiovascular: Regular rate and rhythm with a normal S1 and S2. No gallops, murmurs, or rubs. Normal PMI, no JVD. No pulse deficits. Respiratory: Lungs have equal breath sounds bilaterally, clear to auscultation and percussion. No rales, rhonchi or wheezes noted. No increased work of breathing, no retractions or nasal flaring. 18:05 Back: No spinal tenderness. No costovertebral tenderness. Full range of motion. Skin: Warm, dry with normal turgor. Normal color with no rashes, no lesions, and no evidence of cellulitis. MS/ Extremity: Pulses equal, no cyanosis. Neurovascular intact. Full, normal range of motion. 18:05 Abdomen/GI: Inspection: abdomen appears normal, Bowel sounds: normal, Palpation: abdomen is soft and non-tender, in all quadrants, mass, is not appreciated, rebound tenderness, is not appreciated. 18:05 Neuro: Orientation: is normal, Motor: is normal, moves all fours, Sensation: is normal, no obvious gross deficits, Gait: is steady, at a normal pace, without difficulty. Vital Signs: 17:30 BP 151 / 80; Pulse 92; Resp 18 S; Temp 98.9(O); Pulse Ox 99% on R/A; Weight 90.72 kg aa5 (R); Height 5 ft. 7 in. (170.18 cm) (R); Pain 9/10; 18:44 BP 145 / 73; Pulse 67; Resp 18 S; Pulse Ox 99% on R/A; ca1 19:36 BP 133 / 74; Pulse 66; Resp 18 S; Temp 98.7(O); Pulse Ox 99% on R/A; ca1 20:24 BP 110 / 75; Pulse 75; Resp 17 S; Temp 98.5(O); Pulse Ox 99% on R/A; ca1 21:27 BP 126 / 93; Pulse 81; Resp 18 S; Temp 98.4(O); Pulse Ox 96% on R/A; ca1 17:30 Body Mass Index 31.32 (90.72 kg, 170.18 cm) aa5 MDM: 17:35 Patient medically screened. pm1 21:20 ED course: Patient with large bowel movement at bedside commode. Patient feeling better pm1 and ready to go home. 21:24 Data reviewed: vital signs. Data interpreted: Pulse oximetry: on room air is 99 %. pm1 Interpretation: normal. Counseling: I had a detailed discussion with the patient and/or guardian regarding: the historical points, exam findings, and any diagnostic results supporting the discharge/admit diagnosis, lab results, radiology results, the need for outpatient follow up, to return to the emergency department if symptoms worsen or persist or if there are any questions or concerns that arise at home. 10/16 17:39 Order name: Basic Metabolic Panel; Complete Time: 19:25 pm1 10/16 17:39 Order name: CBC with Diff; Complete Time: 19:25 pm1 10/16 17:39 Order name: Creatinine for Radiology; Complete Time: 19:25 pm1 10/16 17:39 Order name: Hepatic Function; Complete Time: 19:25 pm1 10/16 17:39 Order name: Lipase; Complete Time: 19:25 pm1 10/16 17:39 Order name: IV Saline Lock; Complete Time: 18:02 pm1 10/16 17:39 Order name: Labs collected and sent; Complete Time: 18:02 pm1 10/16 17:57 Order name: Abdomen ; Complete Time: 20:04 EDMS Administered Medications: 18:05 Drug: Zofran 4 mg Route: IVP; Site: left antecubital; rv 19:20 Follow up: Response: No adverse reaction; Nausea is decreased ca1 18:18 Drug: Ativan 1 mg Route: IVP; Site: left antecubital; ca1 19:20 Follow up: Response: No adverse reaction; Anxiety decreased ca1 20:44 Not Given (Physician Discretion): Glycerin (Adult) Suppository 1 supp MT once pm1 20:55 Drug: Fleet Enema 133 ml Route: MT; ca1 21:30 Follow up: Response: No adverse reaction; No adverse reaction. BM done ca1 Disposition: 10/17 07:31 Co-signature as Attending Physician, Chandra Jacome MD. rn Disposition: 10/16/18 21:26 Discharged to Home. Impression: Constipation. - Condition is Stable. - Discharge Instructions: Constipation, Adult. - Prescriptions for Miralax 17 gram/dose Oral - take 1 packet by ORAL route once daily As needed dilute powder in 8 ounces of water or juice; 7 packet. - Medication Reconciliation Form, Thank You Letter, Antibiotic Education, Prescription Opioid Use form. - Follow up: Emergency Department; When: As needed; Reason: Worsening of condition. Follow up: Private Physician; When: 2 - 3 days; Reason: Recheck today's complaints, Continuance of care, Re-evaluation by your physician. - Problem is new. - Symptoms have improved. Signatures: Dispatcher [employer] EDMS Chandra Jacome MD MD rn Calderon, Audri, RN RN aa5 Desean Dowling, BILINGUAL ELEMENTARY SCHOOL TEACHER [employer]ING[employer] ELEMENT[employer] SCHOOL TEACHER pm1 Spencer Pino RN RN rv Acob, Roxane, RN RN ca1 Corrections: (The following items were deleted from the chart) 06 17:56 17:41 Abdomen Pelvis W Con+CT.RAD.BRZ ordered. [facility] 17:57 17:51 Abdomen Pelvis W Con+CT.RAD.BRZ ordered. [facility] 21:43 21:26 10/16/2018 21:26 Discharged to Home. Impression: Constipation. Condition is ca1 Stable. Forms are Medication Reconciliation Form, Thank You Letter, Antibiotic Education, Prescription Opioid Use. Follow up: Emergency Department; When: As needed; Reason: Worsening of condition. Follow up: Private Physician; When: 2 - 3 days; Reason: Recheck today's complaints, Continuance of care, Re-evaluation by your physician. Problem is new. Symptoms have improved. pm1
[2018-10-16 23:04] VITALS: BP 126/93; TEMP 98.4; O2SAT 96
== END 2018-10-16 21:43 | disposition home or self-care (01) ==
LOC: ER 17:19
DX: K59.00 Constipation, unspecified (principal); I10 Essential (primary) hypertension; F41.9 Anxiety disorder, unspecified; F32.9 Major depressive disorder, single episode, unspecified; Z88.0 Allergy status to penicillin; Z91.041 Radiographic dye allergy status
CPT/HCPCS: 85025; 80048; 36415; 80076; 83690; 74176; 96375; 96374; 99284; J2405

== ENCOUNTER 2019-10-01 19:45 | Emergency (ER) | payer OTHER ==
[2019-10-01] MEDS ORDERED: NA CHLORIDE 0.9% 1,000 ML ONE (21:07)
[2019-10-01 21:45] LABS: Absolute Lymphocytes (CBC) 1.4 K/uL (0.7-4.9); Basophils % 0.4 % (0-1.3); Hematocrit 36.6 % (36.0-45.0); Lymphocytes % 22.4 % (15.3-44.8); MPV 7.7 fL (7.6-11.3); RBC Red Blood Cell Count 4.16 M/uL (3.86-4.86)
[2019-10-01 22:02] LABS: ALT/SGPT 21 U/L (12-78); AST/SGOT 14 U/L (15-37); Albumin 3.3 g/dL (3.4-5.0); Alkaline Phosphatase 63 U/L (45-117); BUN Blood Urea Nitrogen 12 mg/dL (7-18); Bicarbonate 29 mmol/L (21-32); Bilirubin Direct 0.2 mg/dL (0-0.2); Bilirubin Total 0.7 mg/dL (0.2-1.0); Glucose Level 115 mg/dL (74-106); Lipase 51 U/L (73-393); NT PRO-BNP 384 pg/mL (<450); Potassium 4.2 mmol/L (3.5-5.1); Protein, Total 6.7 g/dL (6.4-8.2); Sodium Level 138 mmol/L (136-145); Troponin (Emerg Dept Use Only) < 0.02 ng/mL (0.0-0.045)
--- NOTE | 2019-10-01 22:07 | RAD REPORT ---
EXAM DESCRIPTION: CT - Head C Spine Cap Wo Con - 10/01/2019 9:49 pm CLINICAL HISTORY: PAIN, head, neck, chest and abdomen injury and pain COMPARISON: Abdomen Pelvis Wo Contrast dated 10/16/2018 TECHNIQUE: Axial [address] head images were obtained. Axial [address] cervical spine images were obtain ed with sagittal and coronal reconstruction images reviewed. Axial 5 mm images of the chest, abdomen and pelvis were obtained. All CT scans are performed using dose optimization technique as appropriate and may include automated exposure control or mA/KV adjustment according to patient size. FINDINGS: No intracranial hemorrhage, mass or edema. No midline shift or abnormal fluid collection. Mastoid air cells and paranasal sinuses are clear. No skull fracture. Underlying mild for age atroph y and chronic ischemic changes are present. Ventricles are in proportion to the amount of volume loss . Prominent thyroid tissue seen. Nodule detail is limited. Follow-up can be obtained if clinical findin gs warrant. Cervical bodies are normal in height and alignment. No fracture or acute bone finding.Disc space narr owing is present C3-4 through C7-T1. Bilateral bony foraminal encroachment present at C3-4 and C4-5. There is significant central spinal stenosis at C4-5 from posterior endplate spurring and calcified d isc material. Significant bilateral foraminal stenosis at C5-6 and C6-7.No prevertebral soft tissue t hickening or paraspinal mass.Central canal detail is inherently limited on CT imaging. CT chest shows no pneumothorax, pulmonary contusion or pleural fluid collection. No mediastinal hem atoma and the aorta and pulmonary arteries are unremarkable. No chest will mass or abnormal axillary finding. No displaced rib fracture or other significant bony finding. CT abdomen and pelvis show no injury to solid abdominal viscera. Small low-density mass inferior righ t lobe liver most likely an incidental cyst. This matches comparison Gallbladder and biliary tree are unremarkable. No bowel injury or significant finding. No free air, free fluid or abnormal stranding. No mass or bulky lymphadenopathy. Right inguinal hernia present. This contains only fat. No urinary bladder abnormality. Uterus is absent. Ovaries are absent or atrophic. No bony fracture or pathologic bone process seen. IMPRESSION: Atrophy and chronic ischemic changes are present. No acute CT Head finding. 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 Multilevel foraminal stenoses. No acute or traumatic findings to the chest, abdomen and pelvis. Enlarged thyroid gland. Follow-up outpatient sonography can be obtained as warranted. No significant CT cervical spine finding. No significant CT Chest finding. No significant CT Abdomen and Pelvis finding.
[2019-10-01 22:08] LABS: Valproic Acid (Depakene) Level < 3.0 ug/mL (50-100)
[2019-10-02] LABS: Urine Blood NEGATIVE (NEG); Urine Glucose NEGATIVE (NEG); Urine Protein NEGATIVE (NEG); Urine pH 8.5 (5.0-7.0)
[2019-10-02] MEDS ORDERED: CEFTRIAXONE/SWI 1gm 1 GM/10 ML SYR ONE (00:01)
[2019-10-02] MEDS ORDERED: LORazepam 2 MG/ML VIAL ONE (00:01)
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
[2019-10-02] MEDS ORDERED: CIPROFLOXACIN HCL 500 MG TAB ONE (00:24)
[2019-10-02 00:29] LABS: Urine Bacteria LOADED /HPF (<20); Urine RBC <5 /HPF (NONE SEEN)
[2019-10-02 00:30] LABS: Urine Amorphous Sediment 2+ /HPF (NONE SEEN); Urine Culture Reflex Order NOT NEEDED; Urine Mucus 1+ /HPF (NONE SEEN)
[2019-10-02 01:40] VITALS: TEMP 18
[2019-10-02 01:41] VITALS: BP 163/78; O2SAT 99
--- NOTE | 2019-10-02 08:05 | EKG ---
Test Date: 2019-10-01 Test Time: 20:53:06 Cook Soup: MEASUREMENT RESULTS: Intervals: Rate: 69 WV: 192 QRSD: 82 QT: 416 QTc: 445 Guston: P: 36 WV: 192 QRS: 24 T: 60 INTERPRETIVE STATEMENTS: Normal sinus rhythm Normal ECG Compared to ECG 03/06/2018 15:49:30 No significant changes Electronically Signed On 10-02-19 08:03:57 CDT by Zeyad Bennett
--- NOTE | 2019-10-02 12:44 | RAD REPORT ---
EXAM DESCRIPTION: RAD - Chest Single View - 10/01/2019 9:42 pm CLINICAL HISTORY: CHEST PAIN Chest pain. COMPARISON: Chest Single View dated 03/06/2018; Chest Single View dated 11/14/2017; Chest Pa And Lat ( 2 Views) dated 03/13/2017; Abdomen Acute Series dated 08/26/2015 FINDINGS: Portable technique limits examination quality. The lungs are grossly clear. The heart is normal in size. No displaced fractures. IMPRESSION: No acute intrathoracic process suspected.
== END 2019-10-02 01:20 | disposition home or self-care (01) ==
LOC: ER 19:45
DX: S00.90XA Unspecified superficial injury of unspecified part of head, initial encounter (principal); F41.9 Anxiety disorder, unspecified; N39.0 Urinary tract infection, site not specified; I10 Essential (primary) hypertension; W18.00XA Striking against unspecified object with subsequent fall, initial encounter; Y93.9 Activity, unspecified; Y92.009 Unspecified place in unspecified non-institutional (private) residence as the place of occurrence of the external cause; Z88.0 Allergy status to penicillin; Z85.42 Personal history of malignant neoplasm of other parts of uterus; Z91.041 Radiographic dye allergy status
CPT/HCPCS: 96365; 96361; 93005; 87088; 85025; 87086; 80048; 36415; 83735; 80076; 80164; 87077; 87186; 84484; 83690; 83880; 70450; 71250; 72125; 71045; 99284; J7030; 81003; 81015

== ENCOUNTER 2019-10-09 19:10 | Emergency (ER) | payer OTHER ==
[2019-10-09] MEDS ORDERED: NA CHLORIDE 0.9% 500 ML ONE ×2 (19:44→21:45)
[2019-10-09 19:55] LABS: Basophils % 0.8 % (0-1.3); Hematocrit 37.3 % (36.0-45.0); Lymphocytes % 24.6 % (15.3-44.8); MPV 7.3 fL (7.6-11.3); RBC Red Blood Cell Count 4.33 M/uL (3.86-4.86)
[2019-10-09 20:20] LABS: Albumin 3.4 g/dL (3.4-5.0); Bilirubin Direct 0.2 mg/dL (0-0.2); Bilirubin Total 0.7 mg/dL (0.2-1.0); Potassium 3.9 mmol/L (3.5-5.1); Protein, Total 7.1 g/dL (6.4-8.2)
[2019-10-09] MEDS ORDERED: ONDANSETRON 4 MG/2 ML VIAL ONE (22:59)
[2019-10-09] MEDS ORDERED: MORPHINE 2 MG/ML SYR ONE (22:59)
[2019-10-10] MEDS ORDERED: METRONIDAZOLE 500mg IVPB 500 MG/100 ML BAG IV ONE (00:17)
[2019-10-10] MEDS ORDERED: CIPROFLOXACIN HCL 500 MG TAB ONE (00:18)
[2019-10-10 01:28] VITALS: TEMP 98.7
[2019-10-10 01:34] VITALS: BP 141/95; O2SAT 99
--- NOTE | 2019-10-10 12:37 | RAD REPORT ---
EXAM DESCRIPTION: CT - Abdomen Pelvis Wo Contrast - 10/10/2019 3:04 am CLINICAL HISTORY: Rectal pain COMPARISON: None Available. TECHNIQUE: CT of the abdomen and pelvis without IV contrast. Evaluation of the solid organs and vasc ulature is suboptimal due to lack of IV contrast. Motion artifact. FINDINGS: Lung Bases: No signs atelectasis in the right lung base. Trace pericardial effusion Bones: Degenerative endplate spondylosis and facet arthropathy disc height narrowing throughout the v isualized spine. Abdomen: Liver: The liver has normal size and density. Gallbladder: No calcified gallstones. Spleen, Pancreas, and Adrenal Glands: The spleen, pancreas, and adrenal glands are unremarkable. Kidneys: The kidneys have normal size without evidence of hydronephrosis. No obstructing ureteral ksenia culi. Vasculature: Aortoiliac atherosclerosis. IVC is unremarkable. Stomach: The stomach and duodenum have normal course. Other: No free intraperitoneal air. No free fluid or lymphadenopathy. Pelvis: Bladder: Urinary bladder is unremarkable. Bowel: No dilated loops of large or small bowel. Mild wall thickening of the distal sigmoid colon a nd rectum. Appendix: Normal appendix. Pelvis: Prior hysterectomy. IMPRESSION: 1. Findings compatible with mild nonspecific proctocolitis which may be of infectious or inflammatory etiology. This exam was performed according to our departmental dose-optimization program, which includes autom ated exposure control, adjustment of the mA and/or kV according to patient size and/or use of iterati ve reconstruction technique. Electronically signed by: Jayce Kiran 10/09/2019 11:35 PM CDT Due to temporary technical issues with the PACS/Fluency reporting system, reports are being signed by the in house radiologist without review as a courtesy to ensure prompt reporting. The interpreting r adiologist is fully responsible for the content of the report.
--- NOTE | 2019-10-11 18:26 | EDPHYS ---
Physician Documentation [facility] Name: Zuleima Cunningham Age: 79 yrs Sex: Female : 1940 Arrival Date: 10/09/2019 Time: 19:13 Bed 7 Private MD: ED Physician Bob Mckinnon HPI: 10/08 19:35 This 79 yrs old Female presents to ER via EMS with complaints of Bowel cp Obstruction. 19:35 The patient presents to the emergency department with pain in the rectal area, that is cp moderate. 19:35 Onset: The symptoms/episode began/occurred gradually, and became worse today. Context: cp the patient Patient complains of constipation and reports last bowel movement was 4 days ago. 19:35 Associate signs and symptoms: Pertinent positives: constipation, Pertinent negatives: cp abdominal pain, diarrhea, dysuria, fever, lower GI bleeding, vomiting. The patient has experienced similar episodes in the past, several times. Historical: - Allergies: 19:34 IV contrast; rr5 19:34 PENICILLINS; rr5 19:34 IV contrast; ls4 19:34 PENICILLINS; ls4 - Home Meds: 19:34 on medication cannot recall the names [Active]; rr5 - PMHx: 19:34 Anxiety; Chronic pain; Depression; Hypertension; uterine cancer; ADD/ADHD; rr5 19:34 Anxiety; Chronic pain; Depression; Hypertension; uterine cancer; ls4 - PSHx: 19:34 Hysterectomy; rr5 19:34 Hysterectomy; ls4 - Immunization history:: Adult Immunizations up to date, Adult Immunizations up to date. - Social history:: Smoking status: unknown Smoking status: unknown. ROS: 19:45 Constitutional: Negative for body aches, chills, fever, poor PO intake. cp 19:45 Eyes: Negative for injury, pain, redness, and discharge. cp 19:45 ENT: Positive for Teeth pain Negative for ear pain, sore throat, difficulty swallowing, difficulty handling secretions. 19:45 Cardiovascular: Negative for chest pain, palpitations. 19:45 Respiratory: Negative for cough, shortness of breath, wheezing. 19:45 Abdomen/GI: Positive for constipation, rectal pain, Negative for abdominal pain, nausea, vomiting, and diarrhea, black/tarry stool, rectal bleeding. 19:45 : Negative for urinary symptoms, pelvic pain, flank pain. 19:45 Skin: Negative for rash. 19:45 Neuro: Negative for altered mental status, headache, weakness. 19:45 All other systems are negative. Exam: 19:50 Constitutional: The patient appears in no acute distress, alert, awake, cp non-diaphoretic, non-toxic, well developed, well nourished, uncomfortable. 19:50 Head/Face: Normocephalic, atraumatic. cp 19:50 Eyes: Periorbital structures: appear normal, Conjunctiva: normal, no exudate, no injection, Sclera: no appreciated abnormality, Lids and lashes: appear normal, bilaterally. 19:50 ENT: External ear(s): are unremarkable, Nose: is normal, Mouth: Lips: moist, Oral mucosa: pink and intact, moist, Posterior pharynx: Airway: no evidence of obstruction, patent, erythema, is not appreciated, exudate, is not appreciated, Dental exam: abscess, is not appreciated, dental caries, that is moderate, diffusely, gum swelling, not appreciated, missing teeth, diffusely, pain, that is mild, specifically in the upper right first bicuspid (#5) and upper left first bicuspid (#12). 19:50 Neck: ROM/movement: is normal, is supple, without pain, no range of motions limitations, no nuchal rigidity. 19:50 Chest/axilla: Inspection: normal, Palpation: is normal, no crepitus, no tenderness. 19:50 Cardiovascular: Rate: normal, Rhythm: regular, Edema: is not appreciated, JVD: is not appreciated. 19:50 Respiratory: the patient does not display signs of respiratory distress, Respirations: normal, no use of accessory muscles, no retractions, labored breathing, is not present, Breath sounds: are clear throughout, no decreased breath sounds, no stridor, no wheezing. 19:50 Abdomen/GI: Inspection: abdomen appears normal, Bowel sounds: active, all quadrants, Palpation: abdomen is soft and non-tender, in all quadrants, voluntary guarding, is not appreciated, involuntary guarding, is not appreciated, Rectal exam: rectal tone normal, Stool: brown, guaiac negative, hemorrhoid(s), are not appreciated, mass, is not appreciated, tenderness, that is mild, fecal impaction, that is mild, the exam is chaperoned by the nurse. 19:50 Back: pain, is absent, ROM is normal. 19:50 Skin: no rash present. Vital Signs: 19:20 BP 148 / 63; Pulse 70; Resp 16; Temp 98.7; Pulse Ox 99% ; Weight 85.28 kg; Height 5 ft. rr5 5 in. (165.10 cm); Pain 0/10; 20:59 BP 133 / 70; Pulse 76; Resp 17; Pulse Ox 99% ; rr5 22:00 BP 154 / 112; Pulse 82; Resp 20; Pulse Ox 100% on R/A; Pain 5/10; ls4 23:00 BP 138 / 108; Pulse 82; Resp 24; Pulse Ox 100% on R/A; Pain 4/10; ls4 10/09 00:00 BP 141 / 95; Pulse 80; Resp 22; Pulse Ox 99% ; rr5 10/08 19:20 Body Mass Index 31.28 (85.28 kg, 165.10 cm) rr5 MDM: 10/08 19:29 Patient medically screened. cp 20:00 Differential diagnosis: hemorrhoids, fissure, abscess, bowel obstruction, fecal cp impaction, colitis, proctocolitis. 10/09 00:45 Data reviewed: vital signs, nurses notes, lab test result(s), radiologic studies, CT cp scan, I have discussed the patient's presentation/case with the attending Emergency Department Physician; and as a result, I will discharge patient. 00:45 Counseling: I had a detailed discussion with the patient and/or guardian regarding: the cp historical points, exam findings, and any diagnostic results supporting the discharge/admit diagnosis, lab results, radiology results, to return to the emergency department if symptoms worsen or persist or if there are any questions or concerns that arise at home. Response to treatment: the patient's symptoms have markedly improved after treatment, Patient given soap suds enema by nurse and bowel movement observed while in ED. 10/08 18: Order name: Basic Metabolic Panel; Complete Time: 21:26 cp 10/08 21: Interpretation: Normal except: NA 125; CL 93; GLUC 119; GFR 81. cp 10/08 18: Order name: CBC with Diff; Complete Time: 21: cp 10/08 21: Interpretation: Normal except: WBC 4.2; MPV 7.3; MN% 15.0. cp 10/08 19:31 Order name: Hepatic Function; Complete Time: 21:26 cp 10/09 00:10 Interpretation: Normal except: GLOB 3.7; A/G 0.9. cp 10/08 19:31 Order name: Lipase; Complete Time: 21:26 cp 10/08 21:27 Interpretation: Reviewed. cp 10/08 21:50 Order name: CT Abd/Pelvis - Without Contrast cp 10/08 19:31 Order name: IV Saline Lock; Complete Time: 19:43 cp 10/08 19:31 Order name: Labs collected and sent; Complete Time: 19:44 cp 10/08 19:31 Order name: Misc. Order: soap suds enema; Complete Time: 20:14 cp Administered Medications: 10/08 19:43 Drug: NS 0.9% 250 ml Route: IV; Rate: bolus; Site: right hand; rr5 20:30 Follow up: Response: No adverse reaction; IV Status: Completed infusion; IV Intake: rr5 250ml 21:40 Drug: NS 0.9% 750 ml Route: IV; Rate: 750 ml/hr; Site: right hand; rr5 22:40 Follow up: Response: No adverse reaction; IV Status: Completed infusion; IV Intake: rr5 750ml 22:45 Drug: morphine 2 mg Route: IVP; Site: right antecubital; ls4 23:45 Follow up: Response: No adverse reaction; RASS: Alert and Calm (0) rr5 22:45 Drug: Zofran (Ondansetron) 4 mg Route: IVP; Site: right antecubital; ls4 23:45 Follow up: Response: No adverse reaction rr5 10/09 00:11 Drug: metroNIDAZOLE 500 mg Volume: 100 ml; Route: IVPB; Infused Over: 30 mins; Site: rr5 right forearm; 01:08 Follow up: Response: No adverse reaction; IV Status: Completed infusion; IV Intake: rr5 100ml 00:14 Drug: Cipro 500 mg Route: PO; rr5 01:08 Follow up: Response: No adverse reaction rr5 Disposition: 07:11 Co-signature as Attending Physician, Bob Mckinnon MD. [email or web address] Disposition: 10/10/19 00:47 Discharged to Home. Impression: Proctocolitis. - Condition is Stable. - Discharge Instructions: Colitis. - Prescriptions for Bentyl 20 mg Oral Tablet - take 1 tablet by ORAL route every 6 hours As needed; 20 tablet. Cipro 500 mg Oral Tablet - take 1 tablet by ORAL route every 12 hours for 10 days; 20 tablet. Metronidazole 500 mg Oral Tablet - take 1 tablet by ORAL route every 8 hours; 30 tablet. - Medication Reconciliation Form, Thank You Letter, Antibiotic Education, Prescription Opioid Use form. - Follow up: Yan Aleman MD; When: 2 - 3 days; Reason: Recheck today's complaints. - Problem is new. - Symptoms have improved. Signatures: Dispatcher [employer] EDMS Rasta Garcia PA PA cp Lora Topete RN RN ls4 Chester Ponce RN RN rr5 Bob Mckinnon MD MD [email or web address] Corrections: (The following items were deleted from the chart) 01:09 00:47 10/10/2019 00:47 Discharged to Home. Impression: Proctocolitis. Condition is ls4 Stable. Forms are Medication Reconciliation Form, Thank You Letter, Antibiotic Education, Prescription Opioid Use. Follow up: Yan Aleman; When: 2 - 3 days; Reason: Recheck today's complaints. Problem is new. Symptoms have improved. cp
--- NOTE | 2019-10-11 18:26 | ER ---
Nurse's Notes [facility] Name: Zuleima Cunningham Age: 79 yrs Sex: Female : 1940 Arrival Date: 10/09/2019 Time: 19:13 Bed 7 Private MD: Diagnosis: Proctocolitis Presentation: 10/08 19:20 Chief complaint: EMS states: no BM for 4 days, patient suspecting of bowel obstruction. rr5 denies N/V/D, denies abdominal pain. 19:20 Coronavirus screen: Proceed with normal triage. Ebola Screen: Patient negative for rr5 fever greater than or equal to 101.5 degrees Fahrenheit, and additional compatible Ebola Virus Disease symptoms Patient denies exposure to infectious person. Patient denies travel to an Ebola-affected area in the 21 days before illness onset. Initial Sepsis Screen: Does the patient meet any 2 criteria? No. Patient's initial sepsis screen is negative. Does the patient have a suspected source of infection? No. Patient's initial sepsis screen is negative. Risk Assessment: Do you want to hurt yourself or someone else? Patient reports no desire to harm self or others. Onset of symptoms was October 05, 2019. 19:20 Method Of Arrival: EMS: [facility] rr5 19:20 Acuity: HOWIE 3 rr5 Triage Assessment: 19:34 General: Appears in no apparent distress. uncomfortable, Behavior is calm, cooperative. ls4 Pain: Complains of pain in left cheek Pain currently is 6 out of 10 on a pain scale. Quality of pain is described as aching, Also complains of. EENT: Reports pain in left cheek tooyh ache. Neuro: Level of Consciousness is awake, alert, obeys commands. Cardiovascular: No deficits noted. Denies chest pain. Respiratory: Respiratory effort is even, unlabored, Respiratory pattern is regular, Breath sounds are clear bilaterally. GI: Reports lower abdominal pain, constipation, Patient currently denies constipation, intolerance of fluids, intolerance of food, nausea, vomiting. : No deficits noted. No signs and/or symptoms were reported regarding the genitourinary system. Derm: No deficits noted. No signs and/or symptoms reported regarding the dermatologic system. Musculoskeletal: No deficits noted. No signs and/or symptoms reported regarding the musculoskeletal system. Historical: - Allergies: 19:34 IV contrast; rr5 19:34 PENICILLINS; rr5 19:34 IV contrast; ls4 19:34 PENICILLINS; ls4 - Home Meds: 19:34 on medication cannot recall the names [Active]; rr5 - PMHx: 19:34 Anxiety; Chronic pain; Depression; Hypertension; uterine cancer; ADD/ADHD; rr5 19:34 Anxiety; Chronic pain; Depression; Hypertension; uterine cancer; ls4 - PSHx: 19:34 Hysterectomy; rr5 19:34 Hysterectomy; ls4 - Immunization history:: Adult Immunizations up to date, Adult Immunizations up to date. - Social history:: Smoking status: unknown Smoking status: unknown. Screenin:37 Abuse screen: Denies threats or abuse. Denies injuries from another. Nutritional ls4 screening: No deficits noted. Tuberculosis screening: No symptoms or risk factors identified. Fall Risk None identified. Assessment: 19:00 General: Appears in no apparent distress. uncomfortable, Behavior is anxious, fussy. ls4 Neuro: Level of Consciousness is awake, alert, obeys commands, Oriented to person, place, time, situation, Topper Press Operator are equal bilaterally Moves all extremities. Gait is Speech is normal, Facial symmetry appears normal, Pupils are PERRLA, Intact. Cardiovascular: No deficits noted. Denies chest pain. Respiratory: Respiratory effort is even, unlabored, Respiratory pattern is regular. GI: Reports constipation. : No deficits noted. No signs and/or symptoms were reported regarding the genitourinary system. Derm: No deficits noted. No signs and/or symptoms reported regarding the dermatologic system. Musculoskeletal: No deficits noted. No signs and/or symptoms reported regarding the musculoskeletal system. 20:58 Reassessment: Patient appears in no apparent distress at this time. Patient is alert, rr5 oriented x 3, equal unlabored respirations, skin warm/dry/pink. sitting on bedside commode. 21:06 Reassessment: Patient appears in no apparent distress at this time. Patient is alert, ls4 oriented x 3, equal unlabored respirations, skin warm/dry/pink. PT HAD MODERATE SOFT FORMED BROWN RESULTS ON COMMODE. 22:00 Reassessment: Patient appears in no apparent distress at this time. Patient and/or ls4 family updated on plan of care and expected duration. Pain level reassessed. Patient is alert, oriented x 3, equal unlabored respirations, skin warm/dry/pink. 23:00 Reassessment: Patient appears in no apparent distress at this time. Patient and/or ls4 family updated on plan of care and expected duration. Pain level reassessed. Patient is alert, oriented x 3, equal unlabored respirations, skin warm/dry/pink. 10/09 00:13 Reassessment: Patient appears in no apparent distress at this time. Patient and/or ls4 family updated on plan of care and expected duration. Pain level reassessed. Patient is alert, oriented x 3, equal unlabored respirations, skin warm/dry/pink. 00:18 Reassessment: CALLED TO PICK PT UP. DISCHARGE EXPLAINED TO HIM. ls4 Vital Signs: 10/08 19:20 BP 148 / 63; Pulse 70; Resp 16; Temp 98.7; Pulse Ox 99% ; Weight 85.28 kg; Height 5 ft. rr5 5 in. (165.10 cm); Pain 0/10; 20:59 BP 133 / 70; Pulse 76; Resp 17; Pulse Ox 99% ; rr5 22:00 BP 154 / 112; Pulse 82; Resp 20; Pulse Ox 100% on R/A; Pain 5/10; ls4 23:00 BP 138 / 108; Pulse 82; Resp 24; Pulse Ox 100% on R/A; Pain 4/10; ls4 10/09 00:00 BP 141 / 95; Pulse 80; Resp 22; Pulse Ox 99% ; rr5 10/08 19:20 Body Mass Index 31.28 (85.28 kg, 165.10 cm) rr5 ED Course: 10/08 19:13 Patient arrived in ED. ds1 19:19 Rasta Garcia PA is PHCP. cp 19:19 Bob Mckinnon MD is Attending Physician. cp 19:22 Lora Topete, SUNNI is Primary Nurse. ls4 19:30 Triage completed. rr5 19:34 Arm band placed on right wrist. rr5 19:37 Patient has correct armband on for positive identification. Bed in low position. Call ls4 light in reach. Side rails up X 1. Pulse ox on. NIBP on. Warm blanket given. Verbal reassurance given. Diet: Patient is NPO. 19:37 No provider procedures requiring assistance completed. ls4 19:44 Inserted saline lock: 20 gauge in right hand, using aseptic technique. Blood collected. rr5 23:24 CT Abd/Pelvis - Without Contrast Sent. ls4 23:27 CT Abd/Pelvis - Without Contrast In Process Unspecified. EDMS 10/09 00:41 Yan Aleman MD is Referral Physician. cp 01:08 IV discontinued, intact, bleeding controlled, No redness/swelling at site. Pressure rr5 dressing applied. Administered Medications: 10/08 19:43 Drug: NS 0.9% 250 ml Route: IV; Rate: bolus; Site: right hand; rr5 20:30 Follow up: Response: No adverse reaction; IV Status: Completed infusion; IV Intake: rr5 250ml 21:40 Drug: NS 0.9% 750 ml Route: IV; Rate: 750 ml/hr; Site: right hand; rr5 22:40 Follow up: Response: No adverse reaction; IV Status: Completed infusion; IV Intake: rr5 750ml 22:45 Drug: morphine 2 mg Route: IVP; Site: right antecubital; ls4 23:45 Follow up: Response: No adverse reaction; RASS: Alert and Calm (0) rr5 22:45 Drug: Zofran (Ondansetron) 4 mg Route: IVP; Site: right antecubital; ls4 23:45 Follow up: Response: No adverse reaction rr5 10/09 00:11 Drug: metroNIDAZOLE 500 mg Volume: 100 ml; Route: IVPB; Infused Over: 30 mins; Site: rr5 right forearm; 01:08 Follow up: Response: No adverse reaction; IV Status: Completed infusion; IV Intake: rr5 100ml 00:14 Drug: Cipro 500 mg Route: PO; rr5 01:08 Follow up: Response: No adverse reaction rr5 Intake: 10/08 20:30 IV: 250ml; Total: 250ml. rr5 22:40 IV: 750ml; Total: 1000ml. rr5 10/09 01:08 IV: 100ml; Total: 1100ml. rr5 Outcome: 00:13 Discharged to home ambulatory. ls4 00:13 Condition: stable 00:13 Discharge instructions given to patient, family, Instructed on discharge instructions, follow up and referral plans. medication usage, Demonstrated understanding of instructions, follow-up care, medications. 00:47 Discharge ordered by . cp 01:09 Patient left the ED. ls4 Signatures: Dispatcher [employer] EDMS Maddi Stratton ds1 Rasta Garcia PA PA cp Stewart, Lisa RN RN ls4 Chester Ponce RN RN rr5
== END 2019-10-10 01:09 | disposition home or self-care (01) ==
LOC: ER 19:10
DX: K51.30 Ulcerative (chronic) rectosigmoiditis without complications (principal); I10 Essential (primary) hypertension; Z88.0 Allergy status to penicillin; Z85.42 Personal history of malignant neoplasm of other parts of uterus; Z91.041 Radiographic dye allergy status
CPT/HCPCS: 85025; 80048; 36415; 80076; 83690; 74176; 99284; J2270; J7040 ×2; J2405

== ENCOUNTER 2023-04-12 12:17 | Observation (INO) | payer OTHER ==
--- OUTSIDE RECORDS SUMMARY | 2023-04-12 12:31 | XMS REPORT | Continuity of Care Document ---
:1940 Author Organization [facility] t Address [address] [facility] [address] [place] [address] Care Team Providers Name Role Phone Edelmira Hammond DO Primary Care Physician [phone] EDELMIRA HAMMOND Attending Clinician Unavailable DESAI_RAVINI Attending Clinician Unavailable ASHLIE_MANJEET Admitting Clinician Unavailable Problems Condition Condition Condition Status Onset Resolution Last Treating Co mments Source Name Details Category Date Date Treatment Clinician Date Neuropathy Neuropathy Disease Active 2021-05 [facility] 05-24 00:[facility]: [facility]ospita 00 l Vitamin D Vitamin D Disease Active 2021-05 [facility] deficiency deficiency 05-24 00:00: Hospita 00 l History of History of Disease Active M ethodi uterine uterine 01-19 cancer cancer 00:00: Hospita 00 l Primary Primary Disease Active [facility] insomnia insomnia 01-19 00:00: Hospita 00 l Anxiety Anxiety Disease Active [facility] 01-19 00:00: [facility]ospita 00 l S/P S/P Disease Active [facility] complete complete 01-19 hysterecto hysterecto 00:00: Ho spita my my 00 l Constipati Constipati Disease Active M ethodi on on 01-19 00:00: Hospita 00 l Stomach Stomach Disease Active [facility] pain pain 01-19 00:00: Hospita 00 l Bipolar 2 Bipolar 2 Disease Active [facility] disorder, disorder, 01-19 major major 00:00: Hospita depressive depressive 00 l episode episode Periumbili Periumbili Disease Active M ethodi ksenia ksenia 9-10 st abdominal abdominal 00:00: Hosp david pain pain 00 l Acquired Acquired Disease Active Metho di hypothyroi hypothyroi 9-10 st dism dism 00:00: Hospita 00 l Elevated Elevated Disease Active Metho di blood blood 9-10 st sugar sugar 00:00: Hospita 00 l Essential Essential Disease Active [facility] hypertensi hypertensi -21 st on on 00:00: Hospita 00 l High High Disease Active [facility] cholestero cholestero 721 st l l 00:00: Hospita 00 l Encounter Encounter Disease Active [facility] for for 7-15 st screening screening 00:00: Hosp david mammogram mammogram 00 l for for malignant malignant neoplasm neoplasm of breast of breast Menopause Menopause Disease Active [facility] 7-15 st 00:00: Hospita 00 l Other Other Disease Active [facility] chest pain chest pain 7-15 st 00:00: Hospita 00 l Allergies, Adverse Reactions, Alerts Allergy Allergy Status Severity Reaction(s) Onset Inactive Treating Comm ents Source Name Type Date Date Clinician Iodine Propensi Active Anaphylaxis [facility] And ty to 7-15 st Iodide adverse 00:00: Hospita Containi reaction 00 l ng s to Products drug Penicill Propensi Active Rash Method i ins ty to 7-15 st adverse 00:00: Hospita reaction 00 l s to drug Family History Family Member Diagnosis Comments Start Date Stop Date Source Natural father [facility] Natural mother [facility] Social History Social Habit Start Date Stop Date Quantity Comments Source [facility] orientation [facility] History of Social 2022-03-14 2022-03-[address] function 00:00:00 00:00:00 Hospital Tobacco use and 2022-03-14 2022-03-14 Smokeless [facility] exposure 00:00:00 00:00:00 tobacco non-user Hospital Alcohol intake 2022-03-14 2022-03-14 Ex-drinker [facility] 00:00:00 00:00:00 (finding) Hospital Sex Assigned At [birth year] [facility] 00:[facility]00 [facility] Smoking Status Start Date Stop Date Source Never smoked tobacco [facility] Medications Ordered Filled Start Stop Current Ordering Indication Dosage Frequency Signature Comments Components Source Medication Medication Date Date Medication? Clinician (SIG) Name Name levothyroxi 2021-05- No 50ug QD Take 1 Met [facility] ne 06-07 11-28 tablet (50 st (Synthroid) 00:00: 05:59 mcg total) Hospita 50 mcg 00 :00 by mouth l tablet every morning. docusate 2021-05 Yes 100mg QD Take 1 Method i sodium 1-[address] (COLACE) 12:06: (100 mg Hospit a 100 MG 00 total) by l capsule mouth daily. clonAZEPAM 2021-05 Yes .5mg Q.5D Take 1 Metho di (KlonoPIN) -[address] 0.5 MG 12:06: (0.5 mg Hospita disintegrat 00 total) by l ing tablet mouth 2 (two) times a day as needed for seizures (pt reports taking half of pill at night and 1/4 of pill in mornings). cholecalcif 2021-05 Yes 2000U QD Take 2,000 Methodi jane, 1-[address] vitamin D3, 11:57: mouth Hospi ta 50 mcg 20 daily. l (2,000 unit) capsule capsule losartan 2021-05 Yes [id number] 100mg QD Take 1 Me thodi (COZAAR) 1-[address] 100 MG 00:00: (100 mg Hospita tablet 00 total) by l mouth daily. atorvastati 2021-05 Yes [id number] 10mg QD Take 1 Methodi n (LIPITOR) -03 tablet (10 st 10 mg 00:00: mg total) Hospita tablet 00 by mouth l daily. amLODIPine 2021-05 Yes [id number] 5mg QD Take 1 M ethodi (NORVASC) 5 1-03 tablet (5 st mg tablet 00:00: mg total) Hos lashell 00 by mouth l daily. linaCLOtide 2021-05 Yes [id number] 72ug QD Take 1 Method[facility] (Linzess) 1-[address] 72 mcg 00:00: (72 mcg Hospita capsule 00 total) by l mouth daily before breakfast. pregabalin 2021-05 Yes [id number] 75mg QD Take 1 M ethodi (LYRICA) 75 0-[address] MG capsule 00:00: (75 mg Hospi ta 00 total) by l mouth daily. divalproex 2021-05 Yes [id number] 250mg QD Take 1 Method[facility] (DEPAKOTE) 0-[address] 250 MG EC 00:00: (250 mg Hospi ta tablet 00 total) by l mouth nightly. QUEtiapine Yes [id number] 150mg QD Take 1 [facility] XR 1-[address] (SEROquel 00:00: (150 mg Hospi ta XR) 150 mg 00 total) by l 24 hr mouth tablet nightly. mirtazapine Yes [id number] 45mg QD Take 1 [facility] (REMERON) 9-08 tablet (45 st 45 MG 00:00: mg total) Hospita tablet 00 by mouth l nightly. Procedures This patient has no known procedures. Plan of Care Planned Activity Planned Date Details Comments Source Future Scheduled 2023-03-05 COVID-19 VACCINE (#1) [facility] Test 02:12:50 [code = COVID-19 VACCINE (#1)] Future Scheduled 2023-03-05 SHINGLES VACCINES (1 [facility] Test 02:12:50 of 2) [code = SHINGLES VACCINES (1 of 2)] Future Scheduled 2023-03-05 65+ PNEUMOCOCCAL [facility] Test 02:12:50 VACCINE (1 - PCV) [code = 65+ PNEUMOCOCCAL VACCINE (1 - PCV)] Future Scheduled 2023-03-05 INFLUENZA VACCINE (#1) [facility] Test 02:12:50 [code = INFLUENZA VACCINE (#1)] Encounters Start End Encounter Admission Attending Care Care Encounter Source Date/Time Date/Time Type Type Clinicians Facility Department ID 2022-03-14 2022-03-14 [facility] [id number] [facility] 00:00:00 00:00:00 EDELMIRA [address] 2021-11-26 2021-11-26 Outpatient JAVI SNID[facility] 03[facility] H 07[facility] h Program 2021-05-28 2021-05-28 [facility]patient [facility] [id number] [facility] 00:00:00 00:00:00 EDELMIRA [address] 2021-01-29 2021-01-29 Outpatient DOLLY, [facility] [id number] [facility] 00:00:00 00:00:00 EDELMIRA [address] 2021-01-17 2021-01-17 Outpatient DOLLY, [facility] [id number] [facility] 00:00:00 00:00:00 EDELMIRA [address] 2020-12-01 2020-12-01 Outpatient DOLLY, [facility] [id number] [facility] 00:00:00 00:00:00 EDELMIRA [address] 2020-12-01 2020-12-01 Outpatient DOLLY, [facility] [id number] [facility] 00:00:00 00:00:00 EDELMIRA [address] 2020-12-01 2020-12-01 Outpatient DOLLY, [facility] [id number] [facility] 00:00:00 00:00:00 EDELMIRA [address] 2020-11-23 2020-11-23 Outpatient [facility] [id number] [facility] 00:00:00 00:00:[address] Results This patient has no known results.
[2023-04-12 13:12] LABS: Absolute Lymphocytes (CBC) 0.8 K/uL (0.7-4.9); Hematocrit 35.7 % (36.0-45.0); Lymphocytes % 35.8 % (15.3-44.8); MCV 86.6 fL (80-100); MPV 7.6 fL (7.6-11.3); Platelets 145 thou/uL (152-406); RBC Red Blood Cell Count 4.13 M/uL (3.86-4.86)
[2023-04-12 13:25] LABS: Bilirubin Total 0.7 mg/dL (0.2-1.0); Potassium 3.3 mEq/L (3.5-5.1); Protein, Total 5.8 g/dL (6.4-8.2)
[2023-04-12] MEDS ORDERED: NA CHLORIDE 0.9% 1,000 ML ONE (13:32)
[2023-04-12] MEDS ORDERED: ONDANSETRON 4 MG/2 ML VIAL ONE (13:32)
[2023-04-12] MEDS ORDERED: BISACODYL 10 MG RECTAL SUPP ONE (13:32)
[2023-04-12] MEDS ORDERED: LACTULOSE 20 GM/30 ML UCUP ONE (13:33)
[2023-04-12 14:38] LABS: Specific Gravity 1.006 (1.005-1.030); Urine Bacteria <20 /HPF (<20); Urine Bilirubin NEGATIVE (Negative); Urine Blood Negative (Negative); Urine Clarity Turbid (Clear); Urine Color Light-Yellow (Yellow); Urine Glucose NEGATIVE (Negative); Urine Mucus Slight /HPF (None Seen); Urine Protein NEGATIVE (Negative); Urine Urobilinogen Normal (Normal); Urine pH 6.5 (5.0-7.0)
--- NOTE | 2023-04-12 15:30 | RAD REPORT ---
EXAM DESCRIPTION: CT - Abdomen Pelvis Wo Contrast - 04/12/2023 3:18 pm CLINICAL HISTORY: Abdominal pain. ABD PAIN COMPARISON: <Comparisons> TECHNIQUE: CT imaging of the abdomen and pelvis was performed without contrast. Solid organ, bowel a nd vascular assessment is limited due to lack of IV and oral contrast. All CT scans are performed using dose optimization technique as appropriate and may include automated exposure control or mA/KV adjustment according to patient size. FINDINGS: The lower lung santos are emphysematous but clear. The liver, spleen, pancreas, adrenal glands and kidneys are within normal limits for a limited non-co ntrast examination.Small benign hepatic cysts inferiorly. No bowel obstruction, free air, free fluid or abscess. Significant stool is present throughout the co gilmer. The appendix is normal. Significant thoracolumbar degenerative changes. IMPRESSION: No acute intra-abdominal or pelvic findings. Prominent constipation. A limited non-contrast examination was performed as detailed.
--- NOTE | 2023-04-12 17:03 | EDPHYS ---
Physician Documentation [facility] Name: Zuleima Cunningham Age: 82 yrs Sex: Female : 1940 Arrival Date: 04/12/2023 Time: 12:17 Bed 8 Private MD: AMADOU Physician Rasta Robles HPI: 04/12 16:57 This 82 yrs old Female presents to ER via EMS with complaints of thanh Constipation, Abdominal Pain. 16:57 This 82 yrs old Female presents to ER via EMS with complaints of Constipation, thanh Abdominal Pain. 16:57 The patient presents with abdominal pain in the lower abdomen, abdominal distention in thanh the upper abdomen, in the lower abdomen. Onset: The symptoms/episode began/occurred 3 week(s) ago. The symptoms do not radiate. Associated signs and symptoms: none. The symptoms are described as crampy. Modifying factors: The symptoms are alleviated by nothing, the symptoms are aggravated by nothing. no bm. Severity of pain: At its worst the pain was mild in the emergency department the pain is unchanged. The patient has experienced similar episodes in the past, multiple times. Historical: - Allergies: 12:34 IV contrast; iw 12:34 PENICILLINS; iw - Home Meds: 12:34 mirtazapine 15 mg oral tablet every day at bedtime [Active]; Miralax 17 gram Oral iw powder in packet daily [Active]; lactulose 10 gram/15 mL Oral solution 2 times per day [Active]; Synthroid 50 mcg Oral tablet daily [Active]; pregabalin 75 mg Oral capsule 2 times per day [Active]; quetiapine 100 mg oral tablet 0.5 tab 2 times per day [Active]; Vitamin D3 50 mcg (2,000 unit) oral capsule daily [Active]; - PMHx: 12:34 ADD/ADHD; Anxiety; Chronic pain; Depression; Hypertension; uterine cancer; iw - Immunization history:: Adult Immunizations up to date. - Social history:: Smoking status: Patient denies any tobacco usage or history of. ROS: 16:58 Constitutional: Negative for fever, chills, and weight loss, Eyes: Negative for injury, thanh pain, redness, and discharge, ENT: Negative for injury, pain, and discharge, Neck: Negative for injury, pain, and swelling, Cardiovascular: Negative for chest pain, palpitations, and edema, Respiratory: Negative for shortness of breath, cough, wheezing, and pleuritic chest pain, Back: Negative for injury and pain, : Negative for injury, bleeding, discharge, and swelling, MS/Extremity: Negative for injury and deformity, Skin: Negative for injury, rash, and discoloration, Neuro: Negative for headache, weakness, numbness, tingling, and seizure, Psych: Negative for depression, anxiety, suicide ideation, homicidal ideation, and hallucinations, Allergy/Immunology: Negative for hives, rash, and allergies, Endocrine: Negative for neck swelling, polydipsia, polyuria, polyphagia, and marked weight changes, Hematologic/Lymphatic: Negative for swollen nodes, abnormal bleeding, and unusual bruising, 16:58 Abdomen/GI: Positive for abdominal pain, constipation, Exam: 16:58 Constitutional: This is a well developed, well nourished patient who is awake, alert, thanh and in no acute distress. Head/Face: Normocephalic, atraumatic. Eyes: Pupils equal round and reactive to light, extra-ocular motions intact. Lids and lashes normal. Conjunctiva and sclera are non-icteric and not injected. Cornea within normal limits. Periorbital areas with no swelling, redness, or edema. ENT: Nares patent. No nasal discharge, no septal abnormalities noted. Tympanic membranes are normal and external auditory canals are clear. Oropharynx with no redness, swelling, or masses, exudates, or evidence of obstruction, uvula midline. Mucous membranes moist. Neck: Trachea midline, no thyromegaly or masses palpated, and no cervical lymphadenopathy. Supple, full range of motion without nuchal rigidity, or vertebral point tenderness. No Meningismus. Chest/axilla: Normal chest wall appearance and motion. Nontender with no deformity. No lesions are appreciated. Cardiovascular: Regular rate and rhythm with a normal S1 and S2. No gallops, murmurs, or rubs. Normal PMI, no JVD. No pulse deficits. Respiratory: Lungs have equal breath sounds bilaterally, clear to auscultation and percussion. No rales, rhonchi or wheezes noted. No increased work of breathing, no retractions or nasal flaring. Back: No spinal tenderness. No costovertebral tenderness. Full range of motion. Female : Normal external genitalia. Skin: Warm, dry with normal turgor. Normal color with no rashes, no lesions, and no evidence of cellulitis. MS/ Extremity: Pulses equal, no cyanosis. Neurovascular intact. Full, normal range of motion. Neuro: Awake and alert, GCS 15, oriented to person, place, time, and situation. Cranial nerves II-XII grossly intact. Motor strength 5/5 in all extremities. Sensory grossly intact. Cerebellar exam normal. Normal gait. Psych: Awake, alert, with orientation to person, place and time. Behavior, mood, and affect are within normal limits. 16:58 Abdomen/GI: Inspection: distension, that is mild, Bowel sounds: normal, Palpation: mild abdominal tenderness, in all quadrants, Liver: no appreciated palpable abnormalities, Hernia: not appreciated, 18:37 ECG was reviewed by the Attending Physician. [facility] Vital Signs: 12:34 BP 136 / 80; Pulse 58; Resp 16; Temp 98.1; Pulse Ox 97% on R/A; Weight 63.05 kg; iw 14:40 BP 167 / 78; Pulse 58; Resp 16; Pulse Ox 98% on R/A; iw 18:23 BP 168 / 82; Pulse 58; Resp 16; Pulse Ox 97% on R/A; iw MDM: 12:32 Patient medically screened. thanh 16:59 Differential diagnosis: bowel obstruction, Cholelithiasis, diverticulitis, gastritis, thanh gastroesophageal reflux disease, non-specific abd pain, pancreatitis, Peptic Ulcer Disease, Peritonitis, urinary tract infection. Data reviewed: vital signs, nurses notes, lab test result(s), radiologic studies, CT scan. Consideration of Admission/Observation Escalation of care including admission/observation considered. I considered the following discharge prescriptions or medication management in the emergency department Medications were administered in the Emergency Department. See MAR. Independent interpretation of the following test(s) in the Emergency Department CT Scan: My interpretation is ct abd pelvis. Test considered but Not performed: EKG: no cp. Historians other than the Patient: Spouse/Significant Other: wll informed. Care significantly affected by the following chronic conditions: Hypertension, Obesity, Cancer, anxiety, add,adhd. Counseling: I had a detailed discussion with the patient and/or guardian regarding the historical points, exam findings, and any diagnostic results supporting the discharge/admit diagnosis, lab results, radiology results, the need for outpatient follow up, for definitive care, a family practitioner, a front edger. 04/12 12:33 Order name: CBC with Diff; Complete Time: 14:42 thanh 04/12 12:33 Order name: CMP; Complete Time: 14:42 thanh 04/12 12:33 Order name: Lipase; Complete Time: 14:42 thanh 04/12 12:33 Order name: Urinalysis w/ reflexes; Complete Time: 14:42 thanh 04/12 17:22 Order name: Troponin HS [facility] 04/12 13:13 Order name: Abdomen ; Complete Time: 15:49 EDMS 04/12 17:22 Order name: EKG; Complete Time: 17:22 thanh 04/12 12:33 Order name: IV Saline Lock; Complete Time: 13:01 thanh 04/12 12:34 Order name: Labs collected and sent; Complete Time: 13:01 thanh 04/12 14:44 Order name: Misc. Order: GIVE LACTULOSE; Complete Time: 15:47 thanh 04/12 14:44 Order name: Misc. Order: PT REQUEST TO SPEAK TO PROVIDER; Complete Time: 15:13 iw 04/12 17:22 Order name: EKG - Nurse/Tech; Complete Time: 18:22 thanh EC:37 Rate is 500 beats/min. Rhythm is regular. QRS [place] is Normal. MN interval is prolonged thanh at 240 msec. QRS interval is normal. QT interval is normal. No Q waves. T waves are Normal. No ST changes noted. Clinical impression: Sinus bradycardia and No evidence of ischemia. Interpreted by me. Reviewed by me. Administered Medications: 13:31 Drug: NS 0.9% IV 1000 ml IV at 1 bolus Per protocol; 1000 mL bolus Route: IV; Rate: 1 iw bolus; Site: left forearm; 19:29 Follow up: Response: No adverse reaction; IV Status: Completed infusion; IV Intake: lg3 1000ml 13:32 Drug: Ondansetron IVP 4 mg IVP once; over 2 minutes Route: IVP; Site: left forearm; iw 19:29 Follow up: Response: No adverse reaction lg3 15:47 Drug: Lactulose PO 60 grams 45 ml PO once Volume: 45 ml; Route: PO; iw 19:29 Follow up: Response: No adverse reaction lg3 17:33 Drug: Ativan IVP 1 mg IVP once Route: IVP; Site: left forearm; iw 19:28 Follow up: Response: No adverse reaction; RASS: Alert and Calm (0) lg3 17:55 Drug: Potassium PO Effervescent Tablet 25 mEq PO once; dissolve in 4 ounces of water or iw juice Route: PO; 19:29 Follow up: Response: No adverse reaction lg3 17:55 Drug: Ciprofloxacin PO 500 mg PO once Route: PO; iw 19:28 Follow up: Response: No adverse reaction lg3 18:22 Drug: Rocephin IV 1 grams IV at per protocol once; Given slow IV push per pharmacy iw instructions Route: IV; Rate: per protocol; Site: left forearm; 19:28 Follow up: Response: No adverse reaction; IV Status: Completed infusion; IV Intake: [id number] 19:18 Drug: Dulcolax MN Suppository 10 mg MN once Route: MN; lg3 19:29 Follow up: Response: No adverse reaction lg3 Disposition Summary: 04/12/23 17:24 Hospitalization Ordered Notes: Hospitalization Status: Observation thanh Provider: Padilla Ballard thanh Condition: Fair(04/12/23 17:24) thanh Problem: new(04/12/23 17:24) thanh Symptoms: have improved(04/12/23 17:24) thanh Bed/Room Type: Standard thanh Location: Telemetry/MedSurg (Inpatient)(04/12/23 20:23) Room Assignment: 221(04/12/23 20:38) as6 Diagnosis - Constipation(04/12/23 17:24) thanh - Abdominal pain, Generalized thanh - Dizziness and giddiness thanh - History of falling thanh - Essential (primary) hypertension thanh - Anxiety disorder, unspecified thanh - Bradycardia, unspecified thanh Forms: - Medication Reconciliation Form thanh - SBAR form thanh - Leadership Thank You Letter thanh Signatures: Dispatcher [employer] Corrie Butler RN RN kl Anderson, Corey, MD MD cha Williams, Irene RN Rosalinda Díaz Lacie, RN RN lg3 Villa Hastings RN RN as6 Corrections: (The following items were deleted from the chart) 13:03 12:34 Abdomen Pelvis W Con+CT.RAD.BRZ ordered. EDMS EDMS 13:13 13:03 CT-ABD ordered. EDMS EDMS 17:21 17:03 Home thanh thanh 17:21 17:03 new thanh thanh 17:21 17:03 have improved thanh thanh 17:21 17:03 Stable thanh thanh 17:21 17:03 UTI/ Urinary tract infection, site not specified thanh thanh 17:21 17:03 Constipation thanh thanh 17:21 17:03 Constipation, unspecified thanh thanh 17:48 17:24 Telemetry/MedSurg (observation) thanh eb 17:48 17:24 thanh eb 20:23 17:48 BR ER HOLD eb kl 20:23 17:48 ERHOLD- eb kl 20:38 20:23 kl as6
--- NOTE | 2023-04-12 17:03 | ER ---
Nurse's Notes [facility] Name: Zuleima Cunningham Age: 82 yrs Sex: Female : 1940 Arrival Date: 04/12/2023 Time: 12:17 Bed 8 Private MD: Diagnosis: Constipation;Abdominal pain, Generalized;Dizziness and giddiness;History of falling;Essential (primary) hypertension;Anxiety disorder, unspecified;Bradycardia, unspecified Presentation: 04/12 12:27 Chief complaint: EMS states: constipation X 3 weeks, not eating, lost weight over past iw couple of months, hx of ventral hernia , pt states she does not want to eat because it makes her feel bloated. Coronavirus screen: At this time, the client does not indicate any symptoms associated with coronavirus-19. Ebola Screen: Patient negative for fever greater than or equal to 101.5 degrees Fahrenheit, and additional compatible Ebola Virus Disease symptoms Patient denies exposure to infectious person. Patient denies travel to an Ebola-affected area in the 21 days before illness onset. No symptoms or risks identified at this time. Initial Sepsis Screen: Does the patient meet any 2 criteria? No. Patient's initial sepsis screen is negative. Does the patient have a suspected source of infection? No. Patient's initial sepsis screen is negative. Risk Assessment: Do you want to hurt yourself or someone else? Patient reports no desire to harm self or others. Onset of symptoms was March 29, 2023. 12:27 Method Of Arrival: EMS: [facility] iw 12:27 Acuity: HOWIE 3 iw Triage Assessment: 19:50 General: Appears in no apparent distress. Behavior is calm, cooperative. Pain: Denies lg3 pain. GI: Reports constipation. Historical: - Allergies: 12:34 IV contrast; iw 12:34 PENICILLINS; iw - Home Meds: 12:34 mirtazapine 15 mg oral tablet every day at bedtime [Active]; Miralax 17 gram Oral iw powder in packet daily [Active]; lactulose 10 gram/15 mL Oral solution 2 times per day [Active]; Synthroid 50 mcg Oral tablet daily [Active]; pregabalin 75 mg Oral capsule 2 times per day [Active]; quetiapine 100 mg oral tablet 0.5 tab 2 times per day [Active]; Vitamin D3 50 mcg (2,000 unit) oral capsule daily [Active]; - PMHx: 12:34 ADD/ADHD; Anxiety; Chronic pain; Depression; Hypertension; uterine cancer; iw - Immunization history:: Adult Immunizations up to date. - Social history:: Smoking status: Patient denies any tobacco usage or history of. Screenin:35 [facility] ED Fall Risk Assessment (Adult) Score/Fall Risk Level. Abuse screen: Denies iw threats or abuse. Denies injuries from another. Nutritional screening:. Tuberculosis screening: No symptoms or risk factors identified. Assessment: 13:34 Reassessment: Patient appears in no apparent distress at this time. pt finished iw drinking half oral contrast, states she can not drink any more than that, is at bedside. 14:41 Reassessment: pt assisted to bedside commode, pt remains anxious, pt given verbal iw encouragement, pt is refusing lactulose at this time, requests to wait for CT results, at bedside. GI: Abd is soft X 4 quads. 14:55 Reassessment: pt refusing to drink lactulose, diluted with water per request, iw pt drank 4 sips then refused, states she will scream if i make her drink anymore. 15:47 Reassessment: pt drank lactulose, still remains anxious, call light given, pt iw understands to call when she needs to use bathroom. 17:08 Reassessment: attempt to give pt antibiotic and update on POC to d/c home, pt crying, iw talking loudly, states she thinks she is going to at home, is afraid she can't walk. I reminded pt that she stood herself up to use the bedside commode and had no issues , pt continues to cry and yell that she cannot go home, Dr. Robles made aware of situation. 17:33 Reassessment: pt at doorway screaming for nurse, pt crying saying she can't go home, i iw advised pt that she is staying in the hospital , she states she does not believe me, she sat herself on the floor and said she is falling, she then laid herself back onto the floor and continued saying over and over that she can't go home. Assisted pt to standing and 1 mg ativan ivp was given, pt was placed back in bed. came to bedside and reassured pt that she will remain in hospital , pt calmed down. 19:51 GI: Bowel sounds present X 4 quads. lg3 21:06 General: attempted to call report. nurse not available. will try again. . lg3 21:52 General: attempted to call report. Per Beata, she is not available at this time and lg3 will call back. Vital Signs: 12:34 BP 136 / 80; Pulse 58; Resp 16; Temp 98.1; Pulse Ox 97% on R/A; Weight 63.05 kg; iw 14:40 BP 167 / 78; Pulse 58; Resp 16; Pulse Ox 98% on R/A; iw 18:23 BP 168 / 82; Pulse 58; Resp 16; Pulse Ox 97% on R/A; iw ED Course: 12:26 Patient arrived in ED. iw 12:29 Triage completed. iw 12:29 Arm band placed on. iw 12:32 Rasta Robles MD is Attending Physician. thanh 12:34 Jimena Steve RN is Primary Nurse. iw 13:00 Maintain EMS IV. Dressing intact. Good blood return noted. Site clean \T\ dry. Gauge \T\ iw site: 20 RFA. 13:30 Oral contrast reported to be complete. mw3 13:35 Patient has correct armband on for positive identification. iw 13:45 Provided Education on: . iw 15:20 Abdomen In Process Unspecified. EDMS 17:02 Toan Otero MD is Referral Physician. thanh 17:23 Padilla Ballard MD is Hospitalizing Provider. thanh 17:55 Troponin HS Sent. iw 19:51 No provider procedures requiring assistance completed. Patient admitted, IV remains in lg3 place. No redness/swelling at site. Administered Medications: 13:31 Drug: NS 0.9% IV 1000 ml IV at 1 bolus Per protocol; 1000 mL bolus Route: IV; Rate: 1 iw bolus; Site: left forearm; 19:29 Follow up: Response: No adverse reaction; IV Status: Completed infusion; IV Intake: lg3 1000ml 13:32 Drug: Ondansetron IVP 4 mg IVP once; over 2 minutes Route: IVP; Site: left forearm; iw 19:29 Follow up: Response: No adverse reaction lg3 15:47 Drug: Lactulose PO 60 grams 45 ml PO once Volume: 45 ml; Route: PO; iw 19:29 Follow up: Response: No adverse reaction lg3 17:33 Drug: Ativan IVP 1 mg IVP once Route: IVP; Site: left forearm; iw 19:28 Follow up: Response: No adverse reaction; RASS: Alert and Calm (0) lg3 17:55 Drug: Potassium PO Effervescent Tablet 25 mEq PO once; dissolve in 4 ounces of water or iw juice Route: PO; 19:29 Follow up: Response: No adverse reaction lg3 17:55 Drug: Ciprofloxacin PO 500 mg PO once Route: PO; iw 19:28 Follow up: Response: No adverse reaction lg3 18:22 Drug: Rocephin IV 1 grams IV at per protocol once; Given slow IV push per pharmacy iw instructions Route: IV; Rate: per protocol; Site: left forearm; 19:28 Follow up: Response: No adverse reaction; IV Status: Completed infusion; IV Intake: [id number] 19:18 Drug: Dulcolax CA Suppository 10 mg CA once Route: CA; lg3 19:29 Follow up: Response: No adverse reaction lg3 Medication: 19:51 VIS not applicable for this client. lg3 Intake: 19:28 IV: 10ml; Total: 10ml. lg3 19:29 IV: 1000ml; Total: 1010ml. lg3 Outcome: 17:03 Discharge ordered by . thanh 17:24 Decision to Hospitalize by Provider. [facility] 19:51 Admitted to ER Hold. Please see [facility] for further documentation. lg3 19:51 Condition: stable 19:51 Instructed on the need for admit, Demonstrated understanding of instructions, 22:32 Patient left the ED. lg3 Signatures: Dispatcher [employer] Rasta Boudreaux MD MD cha Williams, Irene, RN SUNNI iw Mikki Collado mw3 Leann Vazquez RN RN lg3
[2023-04-12] MEDS ORDERED: CIPROFLOXACIN HCL 500 MG TAB ONE (17:15)
[2023-04-12] MEDS ORDERED: CEFTRIAXONE 1000 MG/VIAL ONE (17:15)
[2023-04-12] MEDS ORDERED: POTASSIUM 25 MEQ EFFERV TAB ONE (17:15)
[2023-04-12] MEDS ORDERED: LORazepam 2 MG/ML VIAL ONE (17:45)
[2023-04-12] MEDS ORDERED: ONDANSETRON 4 MG/2 ML VIAL IV PRN (19:12)
[2023-04-12] MEDS ORDERED: ACETAMINOPHEN 500 MG TAB PO PRN (19:12)
[2023-04-12] MEDS ORDERED: BISACODYL 10 MG RECTAL SUPP PR PRN (19:12)
[2023-04-12] MEDS: NA CHLORIDE 0.9% 1,000 ML IV SCH (19:12)
[2023-04-12] MEDS ORDERED: LORazepam 2 MG/ML VIAL IV PRN (19:12)
[2023-04-12] MEDS: LACTULOSE 20 GM/30 ML UCUP PO SCH (19:32)
[2023-04-12] MEDS: FAMOTIDINE 20 MG/2 ML VIAL IV SCH (19:32)
[2023-04-12 19:42] VITALS: BMI 23.1
[2023-04-12 23:00] VITALS: O2SAT 97
[2023-04-13 03:33] LABS: Absolute Lymphocytes (CBC) 0.9 K/uL (0.7-4.9); Hematocrit 36.3 % (36.0-45.0); Lymphocytes % 35.3 % (15.3-44.8); MPV 7.7 fL (7.6-11.3); Platelets 147 thou/uL (152-406); RBC Red Blood Cell Count 4.17 M/uL (3.86-4.86)
[2023-04-13 03:50] LABS: Albumin 2.9 g/dL (3.4-5.0); Bilirubin Direct 0.2 mg/dL (0-0.2); Bilirubin Indirect, Calculated 0.6 mg/dL (0.2-0.8); Bilirubin Total 0.8 mg/dL (0.2-1.0); Potassium 3.6 mEq/L (3.5-5.1); Protein, Total 5.8 g/dL (6.4-8.2)
[2023-04-13 05:18] LABS: Blood Morphology Comment NOTED (NOT SEEN); Ovalocytes SLIGHT; Platelet Estimate DECR; Poikilocytosis SLIGHT
[2023-04-13] MEDS: NA CHLORIDE 0.9% 1,000 ML IV SCH (06:50)
[2023-04-13] MEDS ORDERED: CEFTRIAXONE 1,000 MG in NA CHLORIDE 0.9% 50 ML IVPB SCH (09:00)
[2023-04-13 09:21] VITALS: BP 153/85; TEMP 96.7
[2023-04-13] MEDS: LACTULOSE 20 GM/30 ML UCUP PO SCH (10:26)
[2023-04-13] MEDS: FAMOTIDINE 20 MG/2 ML VIAL IV SCH (10:26)
[2023-04-13] MEDS ORDERED: INFLUENZA VACCINE (for 6+ mo) 0.5 ML DOSE IMVAC ONE (11:00)
[2023-04-13] MEDS ORDERED: POLYETHYL GLY 3350 17 GM/DOSE PO PRN (11:25)
[2023-04-13] MEDS ORDERED: GOLYTELY 4000 ML PO SCH (12:42)
--- NOTE | 2023-04-13 13:26 | P.SSS ---
Patient History Date of Service: 04/13/23 Reason for admission: SEVERE CONSTIPATION History of Present Illness: EMELIA HAS HAD SEVERE ANXIETY AND SEVERE FIXATION OF ABDOMEN. SHE HAS HAD CHRONIC CONSTIPATION FOR YEARS. SHE DOES NOT EAT WELL AND DOES NOT HAVE ENOUGH FIBER INTAKE. SHE WAS WITH DAUGHTER AT [facility] FOR TWO YEARS BUT SHE GOT EXHAUSTED AND NOW SHE IS BACK WITH HERE. SHE IS WITH HOME HEALTH FOR NOW. SHE HAS SHOWN CONFUSION IN PM AT HOSPITAL. Allergies Penicillins Allergy (Unverified 11/14/17 19:09) Unknown IV contrast Allergy (Uncoded 08/13/15 01:32) Hives/Rash Home Medications: Polyethylene Glycol 3350 [Miralax] 17 gm PO PRN PRN 03/13/17 Lactulose 10 gm PO BID 04/12/23 Levothyroxine Sodium [Synthroid] 50 mcg PO DAILY 04/12/23 Mirtazapine 15 mg PO BEDTIME 04/12/23 Pregabalin 75 mg PO BID 04/12/23 Quetiapine [Seroquel*] 1 tab PO BEDTIME 04/12/23 Vitamin D [Drisdol*] 1 tab PO DAILY 04/12/23 - Past Medical/Surgical History Has patient received pneumonia vaccine in the past: Yes Diabetic: No -: Bipolar -: arthritis -: osteoporosis -: HTN -: uterine cancer -: polymyasia rumatica -: neuropathy -: Dementia -: Anxiety/depression -: chronic pain -: insomnia -: breast biopsy -: hysterectomy -: hernia repair - Family History Father -: Stroke Mother -: Lung disease - Social History Smoking Status: Never smoker Alcohol use: No CD- Drugs: No Caffeine use: No Place of Residence: Home Review of Systems 10-point ROS is otherwise unremarkable General: Weakness Physical Examination - Vital Signs Temperature: 96.7 F Blood Pressure: 153/85 Pulse: 56 Respirations: 18 Pulse Ox (%): 99 - Physical Exam General: Cachectic, Mild distress HEENT: Atraumatic, PERRLA, Mucous membr. moist/pink, EOMI, Sclerae nonicteric Neck: Supple, 2+ carotid pulse no bruit, No LAD, Without JVD or thyroid abnormality Respiratory: Clear to auscultation bilaterally, Normal air movement Cardiovascular: Regular rate/rhythm, Normal S1 S2 Gastrointestinal: Normal bowel sounds, No tenderness (SOFT ABDOMEN) Musculoskeletal: No tenderness Integumentary: No rashes Neurological: Normal gait, Normal speech, Normal strength at 5/5 x4 extr, Normal tone, Normal affect Lymphatics: No axilla or inguinal lymphadenopathy - Studies Laboratory Data (last 24 hrs) 04/12/23 12:55 Sodium 137 Potassium 3.3 L BUN 6 L Creatinine 0.65 Glucose 121 H Total Bilirubin 0.7 AST 11 L ALT 14 Alkaline Phosphatase 44 L Lipase 24 - Diagnosis (Problem(s)) (1) Constipation Current Visit: Yes Status: Chronic Plan: ENEMA Q6H WORKED. PER DAUGHTER SHE HAD LARGE BM LAST NIGHT. I ADVISED TO MAKE HER A LARGE COLOMBIAN YOGUHRT SMOOTHY WITH ALL GREEN VEGATABLES AND BERRIES DAILY AND HAVE HER DRINK IT. SHE WILL HAVE CONSTIPATION WITHOUT FIBER. CONT HH. (2) Severe anxiety Current Visit: Yes Status: Chronic Plan: SHE HAS THIS FOR YEARS. PSYCH RX HAS NOT HELPED MUCH. SHE CONSTANTLY WORRIES ABOUT HER CONSTIPATION. CONT MEDS. (3) Alzheimer disease Current Visit: Yes Status: Chronic Plan: THIS IS POSSIBLE SHE IS STARTING TO GET NIGHTTIME CONFUSION. - Disposition Disposition: ROUTINE DISCHARGE Condition: FAIR
[2023-04-13] MEDS ORDERED: QUETIAPINE 100MG TAB PO SCH (21:00)
[2023-04-13] MEDS ORDERED: LACTULOSE 20 GM/30 ML UCUP PO SCH (21:00)
[2023-04-13] MEDS ORDERED: HOME MED 1 EA UNK (Lactulose [Lactulose] 10 GM/15 ML Solution) PO SCH (21:00)
[2023-04-13] MEDS ORDERED: MIRTAZAPINE 15 MG PO SCH (21:00)
[2023-04-13] MEDS ORDERED: PREGABALIN 75 MG CAP PO SCH (21:00)
[2023-04-13] MEDS ORDERED: MIRTAZAPINE 15 MG TAB PO SCH (21:00)
[2023-04-14] MEDS ORDERED: LEVOTHYROXINE SOD 0.05 MG TABLET PO SCH (06:30)
[2023-04-14] MEDS ORDERED: DRISDOL (VITAMIN D=ERGOCALCIFEROL) 50000 UNIT CAP PO SCH (09:00)
--- NOTE | 2023-04-15 13:38 | EKG ---
Test Date: 2023-04-12 Test Time: 18:19:34 Political Director: MING MEASUREMENT RESULTS: Intervals: Rate: 50 WI: 240 QRSD: 80 QT: 468 QTc: 426 [place]: P: 40 WI: 240 QRS: 12 T: 38 INTERPRETIVE STATEMENTS: Sinus bradycardia with 1st degree AV block Otherwise normal ECG Compared to ECG 10/01/2019 20:53:06 First degree AV block now present Sinus rhythm no longer present Electronically Signed On 04-15-23 13:29:48 OFFICE INSPECTOR by Yemi Burns
== END 2023-04-13 14:56 | disposition home or self-care (01) ==
LOC: ER 12:17 → ERHOLD 17:34 → 2ND 20:54
PROVIDERS: ADMIT Internal Medicine; ATTEND Internal Medicine
DX: K59.09 Other constipation (principal); F41.9 Anxiety disorder, unspecified; G30.9 Alzheimer's disease, unspecified; I10 Essential (primary) hypertension; F02.80 Dementia in other diseases classified elsewhere, unspecified severity, without behavioral disturbance, psychotic disturbance, mood disturbance, and anxiety; R41.0 Disorientation, unspecified; R00.1 Bradycardia, unspecified; Z88.0 Allergy status to penicillin; Z91.81 History of falling
CPT/HCPCS: 96365; 96361; 93005; 85025 ×2; 81001; 80048; 36415; 80076; 84484; 83690 ×2; 80053; 74176; 96375; 99285; J2405; J7030 ×3; J0696 ×2; G0378 ×4

== ENCOUNTER 2024-02-07 19:51 | Inpatient (IN) | payer OTHER ==
[2024-02-07] MEDS ORDERED: PREGABALIN 75 MG CAP PO ONE (20:36)
[2024-02-07] MEDS ORDERED: NA CHLORIDE 0.9% 1,000 ML ONE (20:36)
[2024-02-07] MEDS ORDERED: MIRTAZAPINE 15 MG TAB ONE (20:37)
[2024-02-07] MEDS ORDERED: SMZ./TMP. 800/160 MG TABLET ONE (20:41)
[2024-02-07 21:28] LABS: Absolute Basophils 0.1 K/uL (0-0.5); Absolute Eosinophils 0.1 K/uL (0-0.5); Absolute Lymphocytes (CBC) 1.1 K/uL (0.7-4.9); Absolute Monocytes 0.3 K/uL (0.1-1.3); Basophils % 2.5 % (0-1.3); Hematocrit 33.7 % (36.0-45.0); Hemoglobin 11.4 g/dL (12.0-15.0); Lymphocytes % 44.1 % (15.3-44.8); MCH 31.1 pg (27.0-35.0); MCHC 33.8 g/dL (32.0-36.0); MCV 91.8 fL (80-100); MPV 7.5 fL (7.6-11.3); Monocytes % 10.3 % (3.3-12.3); Neutrophils % 39.1 % (41.7-73.7); Nucleated Red Blood Cells % 0.1 % (0-0); Platelets 139 thou/uL (152-406); RBC Red Blood Cell Count 3.67 M/uL (3.86-4.86)
--- NOTE | 2024-02-07 21:33 | RAD REPORT ---
EXAMINATION: ONE VIEW CHEST XR CLINICAL INDICATION: Female, 83 years old.confusion TECHNIQUE: 1 View, AP supine, X-ray of the chest was performed. [id number]. COMPARISON: No prior exam. FINDINGS: Lungs and pleura: Clear lungs. No effusion. Heart and mediastinum: Normal heart size. Unremarkable mediastinal contours. Osseous structures: No acute abnormality. Tubes/lines: None Other: None. IMPRESSION: No acute intrathoracic abnormality.
[2024-02-07] MEDS: QUETIAPINE 100MG TAB ONE (21:36)
--- NOTE | 2024-02-07 21:36 | RAD REPORT ---
EXAMINATION: Shoulder Right 2+ Views CLINICAL INDICATION: Female, 83 years old. PAIN RIGHT COMPARISON: 07/07/2012 FINDINGS: No shoulder fracture or dislocation. Degenerative changes are present at the right glenohumeral joint and AC joint. Other findings: n/a IMPRESSION: No acute right shoulder fracture or dislocation.
[2024-02-07 21:39] LABS: AST/SGOT 14 U/L (15-37); Albumin 2.8 g/dL (3.4-5.0); Albumin/Globulin Ratio 0.9 (1.1-1.8); Alkaline Phosphatase 74 U/L (45-117); Anion Gap 6.7 mEq/L (5.0-15.0); BUN Blood Urea Nitrogen 8 mg/dL (7-18); Bicarbonate 26 mEq/L (21-32); Bilirubin Direct 0.2 mg/dL (0-0.2); Bilirubin Indirect, Calculated 0.4 mg/dL (0.2-0.8); Bilirubin Total 0.6 mg/dL (0.2-1.0); Globulin 3.1 g/dL (2.3-3.5); Glomerular Filtration Rate 93 ml/min (=/>90); Glucose Level 92 mg/dL (74-106); Magnesium 1.9 mg/dL (1.6-2.4); NT PRO-BNP 684 pg/mL (<450); Potassium 3.7 mEq/L (3.5-5.1); Protein, Total 5.9 g/dL (6.4-8.2); Sodium Level 135 mEq/L (136-145); Troponin High Sensitivity 16.1 pg/mL (<58.9)
[2024-02-07 21:41] LABS: ALT/SGPT < 14 U/L (13-56)
--- NOTE | 2024-02-07 21:43 | RAD REPORT ---
EXAMINATION: XR PELVIS CLINICAL INDICATION: Female, 83 years old. fall TECHNIQUE: Frontal view of the pelvis [id number]. COMPARISON: No prior exam. FINDINGS: No pelvic or hip fracture appreciated. Bilateral acetabular degenerative changes. The femor al heads appear located on this single frontal view. IMPRESSION: No pelvic fracture identified.
--- NOTE | 2024-02-07 21:49 | RAD REPORT ---
EXAMINATION: Shoulder Left 2+ Views CLINICAL INDICATION: Female, 83 years old. fall and pain COMPARISON: No prior exam. FINDINGS: Longitudinally oriented fracture of the left scapula involving the left scapular blade and which exte nds up to and may involve the left glenoid. Mild left AC joint and moderate left acetabular degenerative changes. Other findings: n/a IMPRESSION: Left scapular fracture, possibly involving the bony glenoid. CT could delineate the full extent of th e fracture if indicated. No dislocation.
--- NOTE | 2024-02-07 21:53 | RAD REPORT ---
EXAMINATION: CT HEAD WITHOUT CONTRAST CT CERVICAL SPINE WITHOUT CONTRAST CLINICAL INDICATION: Female, 83 years old. CONFUSED TECHNIQUE: Axial CT images from the skull base to the vertex without intravenous contrast. Axial CT i mages through the cervical spine were obtained without intravenous contrast. Sagittal and coronal reformatted images were created from the data set. Coronal and sagittal reformatted images were creat ed from the data set. One or more of the following dose reduction techniques were used: Automated exposure control, adjustment of the mA and/or kV according to patient size, and/or iterative reconstr uction. Unless otherwise specified, incidental findings do not require dedicated imaging follow-up. [id number]. COMPARISON: No prior exam. FINDINGS: Head: INTRACRANIAL: No acute intracranial hemorrhage or extraaxial collection. No abnormal brain parenchyma l density. No evidence of acute infarction. The ventricles are normal in size and morphology. No mass or midline shift. Mild chronic small vessel ischemic changes. VASCULATURE: No visualized abnormalities in the arteries or dural venous sinuses. SCALP/SKULL: No significant soft tissue or osseous abnormalities. SINUSES: The visualized paranasal sinuses and mastoid air cells are predominantly clear. Cervical spine: ALIGNMENT: The cervical spine has normal alignment without scoliosis or spondylolisthesis. BONE: Vertebral body heights are maintained. No aggressive osseous lesions. DEGENERATIVE CHANGES: Multilevel cervical spondylosis with varying degrees of neural foraminal narrow ing. At least moderate central spinal stenosis is present at C4-5. SOFT TISSUE: No significant abnormalities in the soft tissue of the neck. The visualized lung apices are clear. Densely calcified right thyroid nodule measuring 7 mm which does not require follow-up. The thyroid is enlarged and heterogeneous . IMPRESSION: No acute intracranial abnormality. No acute fracture or traumatic malalignment of the cervical spine.
[2024-02-07 22:19] LABS: Specific Gravity 1.008 (1.005-1.030); Sqamous Epithelial None Seen /HPF (None Seen); Urine Bacteria 20-50 /HPF (<20); Urine Bilirubin NEGATIVE (Negative); Urine Blood Negative (Negative); Urine Clarity Clear (Clear); Urine Color Light-Yellow (Yellow); Urine Culture Reflex Order NOT NEEDED; Urine Glucose NEGATIVE (Negative); Urine Ketones NEGATIVE (Negative); Urine Micro Reflex YN NO BILL MICROSCOPIC; Urine Mucus Slight /HPF (None Seen); Urine Nitrite 1+ (Negative); Urine Protein NEGATIVE (Negative); Urine RBC <5 /HPF (None Seen); Urine Urobilinogen Normal (Normal)
[2024-02-07 22:33] LABS: PT Prothrombin Time 11.5 SECONDS (9.4-12.5); Protime INR 1.03
[2024-02-07 23:16] LABS: Blood Morphology Comment NOT SEEN (NOT SEEN); Platelet Estimate DECR; White Blood Cell Scan OK (OK)
[2024-02-08] MEDS ORDERED: HYDROCODONE/APAP 5/325 MG TAB ONE ×2 (01:43→01:58)
--- NOTE | 2024-02-08 02:00 | ER ---
Nurse's Notes [facility] Name: Zuleima Cunningham Age: 83 yrs Sex: Female : 1940 Arrival Date: 02/07/2024 Time: 19:51 Bed 2 Private MD: Diagnosis: Balance disorder, failure to thrive, malnutrition, physical debility, left scapular fracture, multiple falls at home Presentation: 02/06 19:57 Chief complaint: Patient's son or daughter states: DECREASED APPETITE AND NOT STANDING jj7 ON HER OWN EMS states: MULTIPLE FALLS OVER THE LAST MONTH WITH THE MOST RECENT BEING LAST NIGHT. SHE FELL FROM STANDING POSITION ON CARPET. DID NOT HIT HER HEAD OR HAVE ANY LOC. GENERALIZED WEAKNESS, AMS, AND COMBATIVENESS OVER THE LAST WEEK. RIGHT SHOULDER PAIN. Care prior to arrival: None. Mechanism of Injury: Fall from standing position. 19:57 Acuity: HOWIE 3 jj7 19:57 Method Of Arrival: EMS: [facility] 19:57 Coronavirus screen: At this time, the client does not indicate any symptoms associated j with coronavirus-19. 19:57 Ebola Screen: No symptoms or risks identified at this time. Initial Sepsis Screen: Does jj7 the patient meet any 2 criteria? No. Patient's initial sepsis screen is negative. Does the patient have a suspected source of infection? No. Patient's initial sepsis screen is negative. Risk Assessment: Do you want to hurt yourself or someone else? Patient reports no desire to harm self or others. Onset of symptoms is unknown. Triage Assessment: 19:57 General: Appears in no apparent distress. comfortable, Behavior is calm, cooperative, jj7 appropriate for age. Pain: Complains of pain in anterior aspect of left shoulder. Neuro: No deficits noted. Level of Consciousness is awake, alert, obeys commands, Oriented to person, place, time, situation. Historical: - Allergies: 19:57 IV contrast; jj7 19:57 PENICILLINS; jj7 - PMHx: 19:57 ADD/ADHD; Anxiety; Chronic pain; Depression; Hypertension; uterine cancer; jj7 - Infectious Disease History:: Denies. - Social history:: The patient is unemployed. - Family history:: not pertinent. Screenin:26 [facility] ED Fall Risk Assessment (Adult) History of falling in the last 3 months, jj7 including since admission Yes- fall prone (multiple falls) (3 pts) Confusion or Disorientation No (0 pts) Intoxicated or Sedated No (0 pts) Impaired Gait No (0 pts) Mobility Assist Device Used No (0 pt) Altered Elimination No (0 pt) Score/Fall Risk Level 3 or more points = High Risk Oriented to surroundings, Maintained a safe environment, Educated pt \T\ family on fall prevention, incl call for assistance when getting out of bed, Assessed \T\ reinforced patient's understanding of fall precautions. Abuse screen: Denies threats or abuse. Nutritional screening: No deficits noted. Tuberculosis screening: No symptoms or risk factors identified. Assessment: 19:57 General: Appears in no apparent distress. comfortable, Behavior is calm, cooperative, jj7 appropriate for age. Pain: Complains of pain in anterior aspect of left shoulder. Neuro: Level of Consciousness is awake, alert, obeys commands, Oriented to person, place, time, situation, Reports weakness. 21:00 Reassessment: Patient is alert, oriented x 3, equal unlabored respirations, skin jj7 warm/dry/pink. 23:00 Reassessment: No changes from previously documented assessment. j7 02/07 01:00 Reassessment: No changes from previously documented assessment. Patient is alert, jj7 oriented x 3, equal unlabored respirations, skin warm/dry/pink. Vital Signs: 02/06 19:57 BP 170 / 92; Pulse 80; Resp 18; Temp 97.5; Pulse Ox 100% on R/A; Weight 54.43 kg; jj7 Height 5 ft. 5 in. ; 21:00 BP 180 / 88; Pulse 76; Resp 19; Pulse Ox 100% on R/A; jj7 22:10 BP 174 / 143; Pulse 69; Resp 16; Pulse Ox 95% on R/A; jj7 23:15 BP 169 / 97; Pulse 76; Resp 18; Pulse Ox 100% ; jj7 02/07 00:15 BP 163 / 97; Pulse 76; Resp 14; Pulse Ox 99% ; jj7 01:15 BP 116 / 94; Pulse 75; Resp 16; Pulse Ox 100% ; j7 02:00 BP 169 / 149; Pulse 96; Resp 14; Pulse Ox 100% on NC; jj7 03:00 BP 164 / 84; Pulse 82; Resp 15; Pulse Ox 100% ; jj7 04:00 BP 146 / 69; Pulse 69; Resp 15; Pulse Ox 100% ; jj7 04:45 BP 154 / 95; Pulse 87; Resp 17; Temp 98.3; Pulse Ox 100% ; jj7 02/06 19:57 Body Mass Index 19.97 (54.43 kg, 165.1 cm) 7 ED Course: 02/06 19:57 Patient arrived in ED. jj7 19:57 Arm band placed on right wrist. Patient placed in an exam room, on a stretcher. jj7 20:03 Mulugeta Nazario MD is Attending Physician. sp4 20:12 Shagufta Beal RN is Primary Nurse. jj7 20:19 Triage completed. jj7 20:26 Patient has correct armband on for positive identification. Bed in low position. Call jj7 light in reach. Side rails up X2. Adult w/ patient. Provided Education on: USE OF CALL OLVERA. Client placed on continuous cardiac and pulse oximetry monitoring. NIBP monitoring applied. Warm blanket given. 21:00 Missed attempt(s): 20 gauge in right antecubital area. Bleeding controlled, band aid jj7 applied, catheter tip intact. 21:05 Inserted saline lock: 20 gauge in right wrist, using aseptic technique. Blood jj7 collected. Flushed with 10 mL NS. 21:12 T4 Free Sent. jj7 21:12 TSH Sent. jj7 21:12 Basic Metabolic Panel Sent. jj7 21:12 CBC with Diff Sent. jj7 21:12 LFT's Sent. jj7 21:12 Magnesium Sent. jj7 21:12 NT PRO-BNP Sent. jj7 21:12 PT-INR Sent. jj7 21:12 Troponin HS Sent. jj7 21:22 XRAY Chest (1 view) In Process Unspecified. EDMS 21:22 Shoulder Right (2 View) XRAY In Process Unspecified. EDMS 21:22 Pelvis XRAY In Process Unspecified. EDMS 21:22 Shoulder Left (2 View) XRAY In Process Unspecified. EDMS 21:42 CT Head C Spine In Process Unspecified. EDMS 21:50 Straight cath inserted, using sterile technique, 14 Fr. Specimen obtained. Returned j7 clear yellow urine. Patient tolerated well. 22:11 Urinalysis W/Microscopic Sent. jj7 23:35 Cleaned of incontinence. Linen changed. jj7 02/07 01:59 Padilla Ballard MD is Hospitalizing Provider. sp4 02:07 Placed in gown. Repositioned patient. Cleaned of incontinence. jj7 02:07 Repositioned patient. Cleaned of incontinence. sa1 03:37 No provider procedures requiring assistance completed. Patient did not have IV access j7 during this emergency room visit. 03:39 Primary Nurse role handed off by Shagufta Beal RN jj7 Administered Medications: 02/06 21:05 Drug: Pregabalin PO 75 mg PO once Route: PO; jj7 22:09 Follow up: Response: No adverse reaction jj7 21:05 Drug: Remeron PO 15 mg PO once Route: PO; jj7 22:10 Follow up: Response: No adverse reaction jj7 21:05 Drug: Trimethoprim-Sulfamethoxazole PO (160 mg-800 mg (DS) 1 tablet PO once Route: PO; jj7 22:09 Follow up: Response: No adverse reaction jj7 21:25 Drug: NS 0.9% IV 1000 ml IV at 75 ml/hr continuous Route: IV; Rate: 75 ml/hr; Site: [facility] right wrist; 22:09 Follow up: IV Status: Completed infusion jj7 02/07 01:57 Drug: HYDROcodone-acetaminophen PO 5 mg-325 mg 2 tabs PO once Route: PO; jj7 03:56 Follow up: Response: Marked relief of symptoms jj7 Medication: 02/06 20:26 VIS not applicable for this client. j7 Outcome: 02/07 02:00 Decision to Hospitalize by Provider. sp4 04:46 Admitted to Med/surg accompanied by nurse, via stretcher, room 225, Report called to johnny SBAR FAXED TO 2ND FLOOR 04:46 Condition: improved 05:26 Patient left the ED. nam Signatures: Dispatcher [facility] ED[facility] Shagufta Beal RN RN jj7 Potepalov, Sergey, MD MD sp4 Sultan Zahra sa1 Corrections: (The following items were deleted from the chart) 02:04 02/06 23:15 BP 169 / 97; Pulse 76bpm; Resp 18bpm; Pulse Ox 100%; j7 jj7 02/07 03:39 03:37 Discharged to home ambulatory, with family, j7 jj7 03:39 03:37 Condition: improved [facility] jj7 03:39 03:37 Discharge instructions given to patient, Instructed on discharge instructions, j follow up and referral plans. Demonstrated understanding of instructions, follow-up care, jj7 03:39 03:39 Patient left the ED. j7 jj7 03:40 02:16 BP 123 / 71; Pulse 61bpm; Resp 17bpm; Pulse Ox 99%; j7 jj7 03:40 03:16 BP 123 / 65; Pulse 67bpm; Resp 18bpm; Pulse Ox 97%; Temp 97.9F; Pain 0/10, Adult; j7 jj7
--- NOTE | 2024-02-08 02:00 | EDPHYS ---
Physician Documentation [facility] Name: Zuleima Cunningham Age: 83 yrs Sex: Female : 1940 Arrival Date: 02/07/2024 Time: 19:51 Bed 2 Private MD: ED Physician Mulugeta Nazario HPI: 02/06 20:05 This 83 yrs old Female presents to ER via Unassigned with complaints of sp4 General Weakness, Fall Injury. 02/07 01:49 [age]-year-old female with past medical history of bipolar disorder, osteoarthritis, sp4 osteoporosis, hypertension, uterine cancer, polymyalgia rheumatica, neuropathy, dementia, anxiety, depression, chronic pain, insomnia, breast biopsy, hysterectomy, hernia repair presents with several weeks of generalized weakness multiple falls at home. Complaining of left shoulder pain. Patient's family states she is suffering from physical debility dizziness generalized weakness. They would like patient evaluated in the hospital. Primary care physician is Dr. Ballard . Historical: - Allergies: 02/06 19:57 IV contrast; jj7 19:57 PENICILLINS; jj7 - PMHx: 19:57 ADD/ADHD; Anxiety; Chronic pain; Depression; Hypertension; uterine cancer; jj7 - Infectious Disease History:: Denies. - Social history:: The patient is unemployed. - Family history:: not pertinent. ROS: 02/07 01:50 Constitutional: Negative for fever, chills, and weight loss, positive fragility, sp4 positive multiple falls, positive balance disorder, positive left and right shoulder pain, positive right hip pain All other systems are negative, Exam: 01:50 Constitutional: Patient is frail elderly female who is suffering from physical sp4 disability, who is awake, alert, and in no acute distress. Head/Face: Normocephalic, atraumatic. Eyes: Pupils equal round and reactive to light, extra-ocular motions intact. Lids and lashes normal. Conjunctiva and sclera are not injected. Cornea within normal limits. Periorbital areas with no swelling, redness, or edema. ENT: Nares patent. No nasal discharge, no septal abnormalities noted. Tympanic membranes are normal and external auditory canals are clear. Oropharynx with no redness, swelling, or masses, exudates, or evidence of obstruction, uvula midline. Mucous membranes moist. Neck: Trachea midline, no thyromegaly or masses palpated, and no cervical lymphadenopathy. Supple, full range of motion without nuchal rigidity, or vertebral point tenderness. Chest/axilla: Normal chest wall appearance and motion. Nontender with no deformity. No lesions are appreciated. Cardiovascular: Regular rate and rhythm with a normal S1 and S2. No gallops, murmurs, or rubs. Normal PMI, no JVD. No pulse deficits. Respiratory: Lungs have equal breath sounds bilaterally, clear to auscultation and percussion. No rales, rhonchi or wheezes noted. No increased work of breathing, no retractions or nasal flaring. Abdomen/GI: Soft, with normal bowel sounds. No distension or tympany. No guarding or rebound. No evidence of tenderness throughout. Back: No spinal tenderness. No costovertebral tenderness. Skin: Warm, dry with normal turgor. Normal color with no rashes, no lesions, and no evidence of cellulitis. MS/ Extremity: Pulses equal, no cyanosis. Neurovascular intact. Full, normal range of motion. Neuro: Awake and alert, GCS 15, oriented to person, place, time, and situation. Cranial nerves II-XII grossly intact. Motor strength 5/5 in all extremities. Sensory grossly intact. Psych: Awake, alert, with orientation to person, place and time. Behavior, mood, and affect are within normal limits 01:50 ECG was reviewed by the Attending Physician. EKG 2018 normal sinus rhythm normal EKG. Rate 69 Vital Signs: 02/06 19:57 BP 170 / 92; Pulse 80; Resp 18; Temp 97.5; Pulse Ox 100% on R/A; Weight 54.43 kg; jj7 Height 5 ft. 5 in. ; 21:00 BP 180 / 88; Pulse 76; Resp 19; Pulse Ox 100% on R/A; jj7 22:10 BP 174 / 143; Pulse 69; Resp 16; Pulse Ox 95% on R/A; jj7 23:15 BP 169 / 97; Pulse 76; Resp 18; Pulse Ox 100% ; jj7 02/07 00:15 BP 163 / 97; Pulse 76; Resp 14; Pulse Ox 99% ; jj7 01:15 BP 116 / 94; Pulse 75; Resp 16; Pulse Ox 100% ; jj7 02:00 BP 169 / 149; Pulse 96; Resp 14; Pulse Ox 100% on NC; jj7 03:00 BP 164 / 84; Pulse 82; Resp 15; Pulse Ox 100% ; jj7 04:00 BP 146 / 69; Pulse 69; Resp 15; Pulse Ox 100% ; jj7 04:45 BP 154 / 95; Pulse 87; Resp 17; Temp 98.3; Pulse Ox 100% ; j7 02/06 19:57 Body Mass Index 19.97 (54.43 kg, 165.1 cm) j7 MDM: 02/06 20:05 Patient medically screened. sp4 02/07 01:53 Differential diagnosis: abrasion, closed head injury, contusion, fracture, laceration, sp4 multiple trauma, sprain, strain. Data reviewed: vital signs, nurses notes, EMS record, old medical records, lab test result(s), EKG, radiologic studies, CT scan, plain films. Consideration of Admission/Observation Patient was admitted/placed on observation. Escalation of care including admission/observation considered. Management of patient was discussed with the following: Primary Care Provider: Nellie KEE . ED course: EXAMINATION: CT HEAD WITHOUT CONTRAST CT CERVICAL SPINE WITHOUT CONTRAST CLINICAL INDICATION: Female, 83 years old. CONFUSED TECHNIQUE: Axial CT images from the skull base to the vertex without intravenous contrast. Axial CT images through the cervical spine were obtained without intravenous contrast. Sagittal and coronal reformatted images were created from the data set. Coronal and sagittal reformatted images were created from the data set. One or more of the following dose reduction techniques were used: Automated exposure control, adjustment of the mA and/or kV according to patient size, and/or iterative reconstruction. Unless otherwise specified, incidental findings do not require dedicated imaging follow-up. [id number]. COMPARISON: No prior exam. FINDINGS: Head: INTRACRANIAL: No acute intracranial hemorrhage or extraaxial collection. No abnormal brain parenchymal density. No evidence of acute infarction. The ventricles are normal in size and morphology. No mass or midline shift. Mild chronic small vessel ischemic changes. VASCULATURE: No visualized abnormalities in the arteries or dural venous sinuses. SCALP/SKULL: No significant soft tissue or osseous abnormalities. SINUSES: The visualized paranasal sinuses and mastoid air cells are predominantly clear. Cervical spine: ALIGNMENT: The cervical spine has normal alignment without scoliosis or spondylolisthesis. BONE: Vertebral body heights are maintained. No aggressive osseous lesions. DEGENERATIVE CHANGES: Multilevel cervical spondylosis with varying degrees of neural foraminal narrowing. At least moderate central spinal stenosis is present at C4-5. SOFT TISSUE: No significant abnormalities in the soft tissue of the neck. The visualized lung apices are clear. Densely calcified right thyroid nodule measuring 7 mm which does not require follow-up. The thyroid is enlarged and heterogeneous . IMPRESSION: No acute intracranial abnormality. No acute fracture or traumatic malalignment of the cervical spine. . ED course: EXAMINATION: Shoulder Left 2+ Views CLINICAL INDICATION: Female, 83 years old. fall and pain COMPARISON: No prior exam. FINDINGS: Longitudinally oriented fracture of the left scapula involving the left scapular blade and which extends up to and may involve the left glenoid. Mild left AC joint and moderate left acetabular degenerative changes. Other findings: n/a IMPRESSION: Left scapular fracture, possibly involving the bony glenoid. CT could delineate the full extent of the fracture if indicated. No dislocation. . ED course: EXAMINATION: XR PELVIS CLINICAL INDICATION: Female, 83 years old. fall TECHNIQUE: Frontal view of the pelvis [id number]. COMPARISON: No prior exam. FINDINGS: No pelvic or hip fracture appreciated. Bilateral acetabular degenerative changes. The femoral heads appear located on this single frontal view. IMPRESSION: No pelvic fracture identified.. ED course: EXAMINATION: XR PELVIS CLINICAL INDICATION: Female, 83 years old. fall TECHNIQUE: Frontal view of the pelvis [id number]. COMPARISON: No prior exam. FINDINGS: No pelvic or hip fracture appreciated. Bilateral acetabular degenerative changes. The femoral heads appear located on this single frontal view. IMPRESSION: No pelvic fracture identified.. ED course: EXAMINATION: Shoulder Right 2+ Views CLINICAL INDICATION: Female, 83 years old. PAIN RIGHT COMPARISON: 07/07/2012 FINDINGS: No shoulder fracture or dislocation. Degenerative changes are present at the right glenohumeral joint and AC joint. Other findings: n/a IMPRESSION: No acute right shoulder fracture or dislocation. . ED course: EXAMINATION: ONE VIEW CHEST XR CLINICAL INDICATION: Female, 83 years old.confusion TECHNIQUE: 1 View, AP supine, X-ray of the chest was performed. [id number]. COMPARISON: No prior exam. FINDINGS: Lungs and pleura: Clear lungs. No effusion. Heart and mediastinum: Normal heart size. Unremarkable mediastinal contours. Osseous structures: No acute abnormality. Tubes/lines: None Other: None. IMPRESSION: No acute intrathoracic abnormality. . 01:58 ED course: Patient discovered to have incidentally a left scapula fracture. Will order sp4 CT shoulder to delineate the extent of the fracture. Will continue to pursue inpatient management and evaluation by primary care physician in the morning.. 02/06 20:04 Order name: Basic Metabolic Panel; Complete Time: 23:37 4 02/06 20:04 Order name: CBC with Diff; Complete Time: 23:37 [facility] 02/06 20:04 Order name: LFT's; Complete Time: 23:37 [facility] 02/06 20:04 Order name: Magnesium; Complete Time: 23:37 4 02/06 20:04 Order name: NT PRO-BNP; Complete Time: 23:37 [facility] 02/06 20:04 Order name: PT-INR; Complete Time: 23:37 [facility] 02/06 20:04 Order name: Troponin HS; Complete Time: 23:37 [facility] 02/06 20:04 Order name: TSH; Complete Time: 23:37 [facility] 02/06 20:04 Order name: T4 Free; Complete Time: 23:37 [facility] 02/06 20:04 Order name: Urinalysis W/Microscopic; Complete Time: 23:37 [facility] 02/06 23:10 Order name: CBC Smear Scan; Complete Time: 23:37 [facility] 02/06 20:04 Order name: XRAY Chest (1 view); Complete Time: 23:37 [facility] 02/06 20:04 Order name: CT Head C Spine; Complete Time: 23:37 [facility] 02/06 20:05 Order name: Shoulder Right (2 View) XRAY; Complete Time: 23:37 [facility] 02/06 20:05 Order name: Pelvis XRAY; Complete Time: 23:37 [facility] 02/06 20:05 Order name: Shoulder Left (2 View) XRAY; Complete Time: 23:37 [facility] 02/07 01:36 Order name: CT Chest Abdomen Pelvis W/O Contrast 02/07 01:49 Order name: Shoulder Left Wo Con EDID 02/07 02:55 Order name: CT EDID 02/06 20:04 Order name: Cardiac monitoring; Complete Time: 21:12 [facility] 02/06 20:04 Order name: EKG - Nurse/Tech; Complete Time: 20:27 [facility] 02/06 20:04 Order name: IV Saline Lock; Complete Time: 21:12 sp4 02/06 20:04 Order name: Labs collected and sent; Complete Time: 21:12 4 02/06 20:04 Order name: O2 Per Protocol; Complete Time: 21:12 sp4 02/06 20:04 Order name: O2 Sat Monitoring; Complete Time: 21:12 sp4 02/06 20:05 Order name: Straight Cath; Complete Time: 22:11 4 02/06 20:15 Order name: Misc. Order: Quetiapine 150 mg PO once in ER; Complete Time: 22:09 sp4 02/06 21:21 Order name: Misc. Order: recollect labs; Complete Time: 23:09 kmf EC:50 Rate is 69 beats/min. Rhythm is regular, Normal Sinus Rhythm. QRS [place] is Normal. [place] sp4 interval is normal. QRS interval is normal. QT interval is normal. No Q waves. T waves are Normal. No ST changes noted. Clinical impression: Normal ECG. Reviewed by me. Administered Medications: 02/06 21:05 Drug: Pregabalin PO 75 mg PO once Route: PO; jj7 22:09 Follow up: Response: No adverse reaction jj7 21:05 Drug: Remeron PO 15 mg PO once Route: PO; jj7 22:10 Follow up: Response: No adverse reaction jj7 21:05 Drug: Trimethoprim-Sulfamethoxazole PO (160 mg-800 mg (DS) 1 tablet PO once Route: PO; jj7 22:09 Follow up: Response: No adverse reaction jj7 21:25 Drug: NS 0.9% IV 1000 ml IV at 75 ml/hr continuous Route: IV; Rate: 75 ml/hr; Site: j right wrist; 22:09 Follow up: IV Status: Completed infusion jj7 02/07 01:57 Drug: HYDROcodone-acetaminophen PO 5 mg-325 mg 2 tabs PO once Route: PO; jj7 03:56 Follow up: Response: Marked relief of symptoms jj7 Disposition Summary: 02/08/24 02:00 Hospitalization Ordered Notes: Hospitalization Status: Inpatient Admission sp4 Provider: Padilla Ballard4 [facility] sp4 Condition: Stable sp4 Problem: new sp4 Symptoms: have improved sp4 Bed/Room Type: Standard sp4 Room Assignment: 225(02/08/24 03:23) cg Diagnosis - Balance disorder, failure to thrive, malnutrition, physical debility, left scapular sp4 fracture, multiple falls at home Forms: - Medication Reconciliation Form sp4 - SBAR form sp4 - Leadership Thank You Letter sp4 Signatures: Dispatcher [employer] Sandra Noel RN RN cg Johnson, Juwairiyah, RN RN jj7 Mulugeta Nazario MD MD sp4 Alecia Sun [facility] Corrections: (The following items were deleted from the chart) 02/06 20:04 20:04 Head C Spine MPR Wo Con+CT.RAD.BRZ ordered. EDMS EDMS 20:04 20:04 THYROID STIMULAT HORMONE+C.LAB.BRZ ordered. EDMS EDMS 20:04 20:04 T4 FREE+C.LAB.BRZ ordered. EDMS EDMS 20:04 20:04 Urinalysis W/Microscopic+U.LAB.BRZ ordered. EDMS EDMS 20:05 20:05 Shoulder Left 2 View+RAD.RAD.BRZ ordered. EDMS EDMS 02/07 01:49 01:39 Thorax Wo Con+CT.RAD.BRZ ordered. EDMS EDMS 03:23 02:00 sp4 cg
--- NOTE | 2024-02-08 02:54 | RAD REPORT ---
EXAM DESCRIPTION: Chest Abd Pelvis Wo Con (accession [id number]), Shoulder Left Wo Con (accession [id number]) CLINICAL HISTORY: shoulder fracture COMPARISON: 04/12/2023 TECHNIQUE: CT of the chest, abdomen and pelvis performed without IV contrast. CT of the left shoulder without contrast. Evaluation of the solid organs and vasculature is suboptimal due to lack of IV contrast. This exam was performed according to our departmental dose-optimization program, which incl udes automated exposure control, adjustment of the mA and/or kV according to patient size and/or use of iterative reconstruction technique. FINDINGS: Chest: Thyroid: No abnormalities of the visualized thyroid. Great Vessels: Great vessels have normal anatomic configuration. Thoracic Aorta: Atherosclerotic calcification of thoracic aorta. Pulmonary arteries: The main pulmonary artery is not dilated. Heart: Moderate pericardial effusion. Coronary artery atherosclerosis. Lymph Nodes: No enlarged mediastinal lymph nodes identified. Esophagus: No abnormalities of the esophagus identified Other: No additional findings. Lungs: Mild bibasilar compressive atelectasis. Pleura: Moderate right and trace left pleural effusion. No pneumothorax. Trachea/Airways: No abnormalities of the visualized trachea or airways. Abdomen: Liver: The liver has normal size and density. Likely right hepatic cyst. Gallbladder: Mild gallbladder distention. Spleen, Pancreas, and Adrenal Glands: The spleen, pancreas, and adrenal glands are unremarkable. Kidneys: Mild bilateral hydroureter and hydronephrosis without obstructing calculi. Punctate nonobs tructing left nephrolithiasis. Bilateral renal cysts. No follow-up imaging for the structures. Vasculature: Aortoiliac atherosclerosis. IVC is unremarkable. Stomach: Small hiatal hernia. Other: No free intraperitoneal air. Small amount of free fluid. Body wall anasarca. Pelvis: Bladder: Distention of the urinary bladder. Bowel: Wall thickening and distention of the distal sigmoid colon and rectum mild adjacent fat stra nding. Large amount stool throughout the remainder of the colon. Appendix: Normal appendix. Pelvis: Prior hysterectomy. Bones: Osteophytic change of the hips. Multilevel moderate to severe disc height narrowing with endpl ate spondylosis and facet arthropathy. Mild levoconvex curvature of the thoracolumbar spine. Osteoarthritic change of the right glenohumeral joint. Left shoulder CT: Nondisplaced comminuted intra-articular fracture of the glenoid extending into the body of the left s capula. Severe osteoarthritic change of the left glenohumeral joint. Spurring of the left acromioclavicular joint. The proximal left humerus is intact. Severe joint space narrowing and margin al osteophytosis of the left glenohumeral joint. IMPRESSION: 1. Nondisplaced comminuted intra-articular fracture of the glenoid extending into the body of the l eft scapula. 2. Wall thickening and distention of the distal sigmoid colon and rectum with mild adjacent fat str anding. These findings could be seen with stercoral colitis. Large amount stool throughout the remainder of the colon. 3. Distention of the urinary bladder and mild bilateral hydroureter and hydronephrosis without obst ructing calculi. This may be related to urinary bladder distention. 4. Moderate right and trace left pleural effusion with mild bibasilar compressive atelectasis. 5. Moderate pericardial effusion. 6. Coronary artery atherosclerosis. 7. Small hiatal hernia. Electronically signed by: Jayce Kiran DO 02/08/2024 02:49 AM [facility] [id number] Due to temporary technical issues with the PACS/[employer] reporting system, reports are being barbie d by the in-house radiologist without review as a courtesy to ensure prompt reporting the interpreting radiologist is fully responsible for the content of the report. Transcribed Date/Time: 02/08/2024 2:53 AM
--- NOTE | 2024-02-08 02:55 | RAD REPORT ---
EXAM DESCRIPTION: Chest Abd Pelvis Wo Con (accession [id number]), Shoulder Left Wo Con (accession [id number]) CLINICAL HISTORY: shoulder fracture COMPARISON: 04/12/2023 TECHNIQUE: CT of the chest, abdomen and pelvis performed without IV contrast. CT of the left shoulder without contrast. Evaluation of the solid organs and vasculature is suboptimal due to lack of IV contrast. This exam was performed according to our departmental dose-optimization program, which incl udes automated exposure control, adjustment of the mA and/or kV according to patient size and/or use of iterative reconstruction technique. FINDINGS: Chest: Thyroid: No abnormalities of the visualized thyroid. Great Vessels: Great vessels have normal anatomic configuration. Thoracic Aorta: Atherosclerotic calcification of thoracic aorta. Pulmonary arteries: The main pulmonary artery is not dilated. Heart: Moderate pericardial effusion. Coronary artery atherosclerosis. Lymph Nodes: No enlarged mediastinal lymph nodes identified. Esophagus: No abnormalities of the esophagus identified Other: No additional findings. Lungs: Mild bibasilar compressive atelectasis. Pleura: Moderate right and trace left pleural effusion. No pneumothorax. Trachea/Airways: No abnormalities of the visualized trachea or airways. Abdomen: Liver: The liver has normal size and density. Likely right hepatic cyst. Gallbladder: Mild gallbladder distention. Spleen, Pancreas, and Adrenal Glands: The spleen, pancreas, and adrenal glands are unremarkable. Kidneys: Mild bilateral hydroureter and hydronephrosis without obstructing calculi. Punctate nonobs tructing left nephrolithiasis. Bilateral renal cysts. No follow-up imaging for the structures. Vasculature: Aortoiliac atherosclerosis. IVC is unremarkable. Stomach: Small hiatal hernia. Other: No free intraperitoneal air. Small amount of free fluid. Body wall anasarca. Pelvis: Bladder: Distention of the urinary bladder. Bowel: Wall thickening and distention of the distal sigmoid colon and rectum mild adjacent fat stra nding. Large amount stool throughout the remainder of the colon. Appendix: Normal appendix. Pelvis: Prior hysterectomy. Bones: Osteophytic change of the hips. Multilevel moderate to severe disc height narrowing with endpl ate spondylosis and facet arthropathy. Mild levoconvex curvature of the thoracolumbar spine. Osteoarthritic change of the right glenohumeral joint. Left shoulder CT: Nondisplaced comminuted intra-articular fracture of the glenoid extending into the body of the left s capula. Severe osteoarthritic change of the left glenohumeral joint. Spurring of the left acromioclavicular joint. The proximal left humerus is intact. Severe joint space narrowing and margin al osteophytosis of the left glenohumeral joint. IMPRESSION: 1. Nondisplaced comminuted intra-articular fracture of the glenoid extending into the body of the l eft scapula. 2. Wall thickening and distention of the distal sigmoid colon and rectum with mild adjacent fat str anding. These findings could be seen with stercoral colitis. Large amount stool throughout the remainder of the colon. 3. Distention of the urinary bladder and mild bilateral hydroureter and hydronephrosis without obst ructing calculi. This may be related to urinary bladder distention. 4. Moderate right and trace left pleural effusion with mild bibasilar compressive atelectasis. 5. Moderate pericardial effusion. 6. Coronary artery atherosclerosis. 7. Small hiatal hernia. Electronically signed by: Jayce Kiran DO 02/08/2024 02:49 AM [facility] [id number] Due to temporary technical issues with the PACS/[employer] reporting system, reports are being barbie d by the in-house radiologist without review as a courtesy to ensure prompt reporting the interpreting radiologist is fully responsible for the content of the report. Transcribed Date/Time: 02/08/2024 2:55 AM
[2024-02-08] MEDS ORDERED: ALBUTEROL 2.5 MG/3 ML NEB SOL NEB PRN (05:30)
[2024-02-08] MEDS ORDERED: ONDANSETRON 4 MG/2 ML VIAL IV PRN (05:30)
[2024-02-08] MEDS: LEVOTHYROXINE SOD 0.05 MG TABLET PO SCH (06:30)
[2024-02-08] MEDS: ACETAMINOPHEN 325 MG TABLET PO PRN (06:56)
[2024-02-08] MEDS: DRISDOL (VITAMIN D=ERGOCALCIFEROL) 50000 UNIT CAP PO SCH (08:30)
[2024-02-08] MEDS: PREGABALIN 75 MG CAP PO SCH ×2 (08:30→20:03)
[2024-02-08] MEDS ORDERED: LACTULOSE 20 GM/30 ML UCUP PO PRN (09:00)
--- NOTE | 2024-02-08 14:50 | P.HP ---
Certification for Inpatient Patient admitted to: Inpatient With expected LOS: >2 Midnights Patient will require the following post-hospital care: Rehabilitation Practitioner: I am a practitioner with admitting privileges, knowledge of patient current condition, hospital course, and medical plan of care. Services: Services provided to patient in accordance with Admission requirements found in Title 42 Section 412.3 of the Code of Federal Regulations Patient History Date of Service: 02/08/24 Reason for admission: Status post fall History of Present Illness: Patient is an 83-year-old female who came to the hospital after falling. She has been getting really weak and her strength has been diminished. She lives at home with her and her daughter helps out as well. Patient normally gets around with a walker. She was at home with her walker and she fell and landed on her left side. This first happened on Friday. She had another fall ye and that precipitated the family bring her into the emergency room. In the ER her workup revealed a scapular fracture involving the glenoid and extending down the scapula. There was no displacement. There was evidence of any humeral fracture. Currently patient is feeling weak and her family is worried that she will continue to follow if she gets her strength built up. They are wanting her to go to inpatient rehab. Patient will be admitted to the hospital for further workup. Allergies Penicillins Allergy (Verified 02/08/24 08:30) Hives/Rash IV contrast Allergy (Uncoded 02/08/24 08:31) Hives/Rash Home Medications: Mirtazapine 15 mg PO BEDTIME 04/12/23 Pregabalin 75 mg PO BID 04/12/23 Quetiapine [Seroquel*] 150 tab PO BID 04/12/23 Vitamin D [Drisdol*] 50,000 unit PO DAILY 04/12/23 - Past Medical/Surgical History Diabetic: No -: Bipolar -: arthritis -: osteoporosis -: HTN -: uterine cancer -: polymyasia rumatica -: neuropathy -: Dementia -: Anxiety/depression -: chronic pain -: insomnia -: breast biopsy -: hysterectomy -: hernia repair - Family History Father Medical History: Stroke Mother Medical History: Lung disease - Social History Smoking Status: Never smoker Alcohol use: No CD- Drugs: No Caffeine use: No Review of Systems 10-point ROS is otherwise unremarkable Physical Examination - Vital Signs Temperature: 97.3 F Blood Pressure: 183/74 Pulse: 78 Respirations: 16 Pulse Ox (%): 98 - Physical Exam General: Alert, In no apparent distress, Oriented x2 HEENT: Atraumatic, PERRLA, Mucous membr. moist/pink, EOMI, Sclerae nonicteric Neck: Supple, 2+ carotid pulse no bruit, No LAD, Without JVD or thyroid abnormality Respiratory: Clear to auscultation bilaterally, Normal air movement Cardiovascular: Regular rate/rhythm, Normal S1 S2 Gastrointestinal: Normal bowel sounds, Soft and benign, Non-distended, No tenderness Musculoskeletal: No clubbing, No swelling, No tenderness Integumentary: No rashes Neurological: Normal speech, Normal tone, Sensation intact, Cranial nerves 3-12 intact, Normal affect, Abnormal gait, Abnormal strength Lymphatics: No axilla or inguinal lymphadenopathy - Studies Laboratory Data (last 24 hrs) 02/07/24 02/07/24 02/07/24 22:18 21:09 21:09 WBC 2.50 L Hgb 11.4 L Hct 33.7 L Plt Count 139 L PT 11.5 INR 1.03 Sodium 135 L Potassium 3.7 BUN 8 Creatinine 0.51 L Glucose 92 Magnesium 1.9 Total Bilirubin 0.6 AST 14 L ALT < 14 Alkaline Phosphatase 74 Assessment & Plan - Problems (Diagnosis) (1) 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 Continue with IV fluids for gentle hydration 2. Physical therapy evaluation 3. Family request inpatient rehab 4. Patient with questionable boils on her right arm and back; will give her 1-2 doses of IV antibiotic and then switch over to doxycycline 5. Splint for left arm to immobilize it 6. Patient was pancytopenia will monitor electrolytes and nutritional labs including iron and B12 level. Further workup as an outpatient. Patient will be admitted for inpatient hospitalization. Discharge Plan: Home Plan to discharge in: Greater than 2 days - Advance Directives Does patient have a Living Will: No Does patient have a Durable POA for Healthcare: No - Code Status/Comfort Care Code Status Assessed: Yes Code Status: Full Code Critical Care: No Time Spent Managing PTS Care (In Minutes): 45
[2024-02-08] MEDS: VANCOMYCIN 1 GM in NA CHLORIDE 0.9% 250 ML IV SCH (15:45)
[2024-02-08] MEDS: METOPROLOL TAR 25 MG TAB PO SCH (17:06)
[2024-02-08] MEDS: Mupirocin NASAL 2 APPL/1 GM TUBE NAS ONE (19:53)
[2024-02-08] MEDS: MINOCYCLINE HCL 50 MG CAP PO SCH (20:02)
[2024-02-08] MEDS: QUETIAPINE 100MG TAB PO SCH (20:03)
[2024-02-08] MEDS: MIRTAZAPINE 15 MG TAB PO SCH (20:03)
[2024-02-08] MEDS: MUPIROCIN 2% OINT 22GM TUBE TOP SCH (20:14)
[2024-02-08] MEDS ORDERED: QUETIAPINE 100MG TAB PO SCH (21:00)
[2024-02-08] MEDS ORDERED: MIRTAZAPINE 15 MG TAB PO SCH (21:00)
[2024-02-08] MEDS: HYDRALAZINE HCL 20 MG/ML VIAL IV PRN (21:52)
[2024-02-08] MEDS: CODEINE 30MG/APAP 300MG TAB PO PRN (21:52)
[2024-02-09] MEDS: LEVOTHYROXINE SOD 0.1 MG TAB PO SCH (05:38)
[2024-02-09 08:31] LABS: Absolute Eosinophils 0.3 K/uL (0-0.5); Absolute Lymphocytes (CBC) 1.1 K/uL (0.7-4.9); Absolute Monocytes 0.4 K/uL (0.1-1.3); Absolute Neutrophil 2.5 K/uL (1.8-8.0); Basophils % 0.7 % (0-1.3); Eosinophils % 6.8 % (0-4.4); Hematocrit 31.5 % (36.0-45.0); Hemoglobin 10.7 g/dL (12.0-15.0); Lymphocytes % 25.4 % (15.3-44.8); MCH 31.4 pg (27.0-35.0); MCHC 34.1 g/dL (32.0-36.0); MCV 92.2 fL (80-100); MPV 7.1 fL (7.6-11.3); Monocytes % 9.7 % (3.3-12.3); Neutrophils % 57.4 % (41.7-73.7); Nucleated Red Blood Cells % 0.1 % (0-0); Platelets 132 thou/uL (152-406); RBC Red Blood Cell Count 3.42 M/uL (3.86-4.86); Red Cell Distribution Width 13.8 % (12.1-15.2)
--- NOTE | 2024-02-09 08:32 | P.PN ---
Subjective Date of Service: 02/09/24 Chief Complaint: Status post fall Subjective: Worsening EMELIA IS FRAIL, WEAK, LADY WHO IS NOW BEDBOUND. SHE FELL AT HOME AND HAS SCAPULA FRACTURE. SHE HAS ALZ DISEASE. SHE SHOULD NOW QUALIFY FOR HOSPICE AT HOME. 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 (2) Alzheimer disease Current Visit: No Status: Chronic Plan: SHE IS NOW DECLINING FAST. SHE SHOULD QUALIFY FOR HOSPICE. I TALKED TO AND HE AGREES. WILL CONSULT MANAGER LABOR RELATIONS. SHE IS NOT AMBULATING ANY LONGER. SHE IS CACHECTIC AND VERY WEAK.
[2024-02-09 08:56] LABS: Magnesium 1.7 mg/dL (1.6-2.4); Phosphorus 2.8 mg/dL (2.5-4.9)
[2024-02-09] MEDS ORDERED: DRISDOL (VITAMIN D=ERGOCALCIFEROL) 50000 UNIT CAP PO SCH (09:00)
--- NOTE | 2024-02-09 10:20 | EKG ---
Test Date: 2024-02-07 Test Time: 20:18:44 Sifter Operator: MEASUREMENT RESULTS: Intervals: Rate: 69 IL: 160 QRSD: 82 QT: 428 QTc: 458 [place]: P: 59 IL: 160 QRS: 59 T: 69 INTERPRETIVE STATEMENTS: Normal sinus rhythm Normal ECG Compared to ECG 04/12/2023 18:19:34 Sinus bradycardia no longer present First degree AV block no longer present Electronically Signed On 02-09-24 10:19:09 CDT by Reagan De La Rosa
--- NOTE | 2024-02-10 13:07 | P.DS ---
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 DISEASE AND ANXIETY CAME AFTER A FALL AT HOME WITH FRACTURE SCAPULA. SHE IS WC BOUND AND NOT ABLE TO DO ANY PT. SHE ALSO WILL NOT BE ABLE TO COOPERATE WITH SEVERE ANXIETY. SHE IS LOSING WEIGHT AND IS APPROPRIATE FOR HOSPICE. TODAY [facility] WILL BE ABLE TO ACCEPT HER AT HOME. IS AWARE. Vital Signs/Physical Exam: Temp Pulse Resp BP Pulse Ox 97.7 F 68 17 131/69 95 02/10/24 04:00 02/10/24 04:00 02/10/24 04:00 02/10/24 04:00 02/10/24 04:00 Laboratory Data at Discharge: WBC 4.30 thou/uL (4.3-10.9) 02/09/24 07:44 Hgb 10.7 g/dL (12.0-15.0) L 02/09/24 07:44 Hct 31.5 % (36.0-45.0) L 02/09/24 07:44 Plt Count 132 thou/uL (152-406) L 02/09/24 07:44 PT 11.5 SECONDS (9.4-12.5) 02/07/24 22:18 INR 1.03 02/07/24 22:18 Sodium 136 mEq/L (136-145) 02/09/24 07:44 Potassium 4.0 mEq/L (3.5-5.1) 02/09/24 07:44 BUN 12 mg/dL (7-18) 02/09/24 07:44 Creatinine 0.54 mg/dL (0.55-1.02) L 02/09/24 07:44 Glucose 84 mg/dL (74-106) 02/09/24 07:44 Phosphorus 2.8 mg/dL (2.5-4.9) 02/09/24 07:44 Magnesium 1.7 mg/dL (1.6-2.4) 02/09/24 07:44 Total Bilirubin 0.6 mg/dL (0.2-1.0) 02/07/24 21:09 AST 14 U/L (15-37) L 02/07/24 21:09 ALT < 14 U/L (13-56) 02/07/24 21:09 Alkaline Phosphatase 74 U/L (45-117) 02/07/24 21:09 Home Medications: Mirtazapine 15 mg PO BEDTIME 04/12/23 Pregabalin 75 mg PO BID 04/12/23 Quetiapine [Seroquel*] 150 tab PO BID 04/12/23 Vitamin D [Drisdol*] 50,000 unit PO DAILY 04/12/23 Followup: Padilla Ballard MD [Primary Care Provider] -
[2024-02-10 20:47] VITALS: O2SAT 98
[2024-02-11] MEDS: MAGNESIUM SULFATE 1 gm IVPB 1 GM/100 ML BAG IV ONE (08:07)
[2024-02-11 08:48] VITALS: BP 153/63; TEMP 97.7
--- NOTE | 2024-02-11 18:08 | P.DS ---
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 DISEASE AND ANXIETY CAME AFTER A FALL AT HOME WITH FRACTURE SCAPULA. SHE IS WC BOUND AND NOT ABLE TO DO ANY PT. SHE ALSO WILL NOT BE ABLE TO COOPERATE WITH SEVERE ANXIETY. SHE IS LOSING WEIGHT AND IS APPROPRIATE FOR HOSPICE. TODAY [facility] WILL BE ABLE TO ACCEPT HER AT HOME. IS AWARE. DC DELAYED BY ONE DAY. TODAY SHE WENT HOME ON HOSPICE SHE IS FRAIL, CACHECTIC, NOT WALKING ANY LONGER, HAS ALZ DISEASE AND SEVERE ANXIETY. Vital Signs/Physical Exam: Temp Pulse Resp BP Pulse Ox 97.7 F 53 16 153/63 H 95 02/11/24 08:00 02/11/24 08:00 02/11/24 08:00 02/11/24 08:00 02/11/24 08:00 Laboratory Data at Discharge: WBC 4.30 thou/uL (4.3-10.9) 02/09/24 07:44 Hgb 10.7 g/dL (12.0-15.0) L 02/09/24 07:44 Hct 31.5 % (36.0-45.0) L 02/09/24 07:44 Plt Count 132 thou/uL (152-406) L 02/09/24 07:44 PT 11.5 SECONDS (9.4-12.5) 02/07/24 22:18 INR 1.03 02/07/24 22:18 Sodium 136 mEq/L (136-145) 02/09/24 07:44 Potassium 4.0 mEq/L (3.5-5.1) 02/09/24 07:44 BUN 12 mg/dL (7-18) 02/09/24 07:44 Creatinine 0.54 mg/dL (0.55-1.02) L 02/09/24 07:44 Glucose 84 mg/dL (74-106) 02/09/24 07:44 Phosphorus 2.8 mg/dL (2.5-4.9) 02/09/24 07:44 Magnesium 1.7 mg/dL (1.6-2.4) 02/09/24 07:44 Total Bilirubin 0.6 mg/dL (0.2-1.0) 02/07/24 21:09 AST 14 U/L (15-37) L 02/07/24 21:09 ALT < 14 U/L (13-56) 02/07/24 21:09 Alkaline Phosphatase 74 U/L (45-117) 02/07/24 21:09 Home Medications: Mirtazapine 15 mg PO BEDTIME 04/12/23 Pregabalin 75 mg PO BID 04/12/23 Quetiapine [Seroquel*] 150 tab PO BID 04/12/23 Vitamin D [Drisdol*] 50,000 unit PO DAILY 04/12/23 Followup: Padilla Ballard MD [Primary Care Provider] - 1-2 Weeks
== END 2024-02-11 11:41 | disposition hospice, home (50) | DRG 563 ==
LOC: ER 19:51 → ERHOLD 02-08 01:40 → 2ND 02-08 05:01
PROVIDERS: ADMIT Internal Medicine; ATTEND Internal Medicine
PROC: 0T9B70Z Drainage of Bladder with Drainage Device, Via Natural or Artificial Opening (ICD-10-PCS; principal; 2024-02-08)
DX: S42.142A Displaced fracture of glenoid cavity of scapula, left shoulder, initial encounter for closed fracture (principal); D61.818 Other pancytopenia; E46 Unspecified protein-calorie malnutrition; Z68.1 Body mass index [BMI] 19.9 or less, adult; R64 Cachexia; F02.84 Dementia in other diseases classified elsewhere, unspecified severity, with anxiety; G30.9 Alzheimer's disease, unspecified; M19.90 Unspecified osteoarthritis, unspecified site; I10 Essential (primary) hypertension; M35.3 Polymyalgia rheumatica; F41.9 Anxiety disorder, unspecified; L02.423 Furuncle of right upper limb; L02.222 Furuncle of back [any part, except buttock and flank]; R29.6 Repeated falls; R62.7 Adult failure to thrive; R20.2 Paresthesia of skin; Z88.0 Allergy status to penicillin; Z51.5 Encounter for palliative care; Z91.81 History of falling; Z74.01 Bed confinement status; Z85.42 Personal history of malignant neoplasm of other parts of uterus; Z90.710 Acquired absence of both cervix and uterus; Z79.899 Other long term (current) drug therapy; W18.30XA Fall on same level, unspecified, initial encounter; Y93.9 Activity, unspecified; Y92.019 Unspecified place in single-family (private) house as the place of occurrence of the external cause; Y99.9 Unspecified external cause status
CPT/HCPCS: 36415; 51702; 70450; 71045; 71250; 72125; 72170; 73200; 74176; 80048; 80076; 81001; 82607; 83540; 83735; 83880; 84100; 84439; 84443; 84484; 85025; 85610; 86140; 93005; 96360; 99285; J0360; J3475; J7030; J7050